=== PATIENT | female | born 1960 | race Caucasian/White ===

== ENCOUNTER 2022-06-06 13:43 | Outpatient (CLI) | payer BC, SELFPAY ==
--- NOTE | 2022-06-06 14:23 | ECG_ITS ---
Measurements Intervals [place] Rate: 65 P: 47 WA: 163 QRS: 6 QRSD: 90 T: -27 QT: 395 QTc: 413 Interpretive Statements SINUS RHYTHM NONSPECIFIC T-WAVE ABNORMALITY- ANTEROLAT/INF LEADS BASELINE ARTIFACT- I, II, AVR BORDERLINE ECG NO PREVIOUS ECG AVAILABLE FOR COMPARISON Electronically Signed On 06-06-2022 15:31:43 CDT by Jovanni Mae D.O.
[2022-06-06 15:57] LABS: Basophils Percent Auto 0.5 % (0.2-1.2); Eosinophils Absolute Auto 0.1 K/mm3 (0-0.3); Eosinophils Percent Auto 1.2 % (0-4.4); Hematocrit 40.2 % (37.0-47.0); Hemoglobin 13.9 g/dL (12.0-15.0); Immature Granulocyte Absolute 0.03 K/mm3 (0.00-0.031); Immature Granulocyte Percent A 0.4 % (0-0.5); Lymphocytes Absolute Auto 3.38 K/mm3 (0.9-3.2); Lymphocytes Percent Auto 39.5 % (18.3-44.2); Mean Corpuscular HGB Conc 34.6 g/dl (32-36); Mean Corpuscular Hemoglobin 33.2 pg (26-34); Mean Corpuscular Volume 95.9 fl (80-100); Mean Platelet Volume 9.3 fl (7.4-10.4); Monocytes Absolute Auto 0.5 K/mm3 (0.1-0.6); Monocytes Percent Auto 5.4 % (2.6-8.5); Neutrophils Absolute Auto 4.6 K/mm3 (1.3-6.7); Platelet Count Result 206 k/mm3 (150-375); Red Blood Count 4.19 M/mm3 (4.2-5.4); Red Cell Distribution Width 14.1 % (11.5-14.5); White Blood Count 8.6 K/mm3 (4.5-10.0)
[2022-06-06 16:08] LABS: Partial Thromboplastin Time 23.9 SECONDS (22.3-36.8); Prothrombin Time 12.4 Seconds (11.1-14.7)
[2022-06-06 16:24] LABS: Hemoglobin A1C 5.3 % (<5.7)
[2022-06-06 16:25] LABS: Urine Cotinine NEGATIVE
== END 2022-06-06 13:44 | disposition home or self-care (01) ==
LOC: ANHSURGERY 13:47
PROVIDERS: PCP Nurse Practitioner; Visit Provider Orthopaedic Surgery
DX: Z01.812 Encounter for preprocedural laboratory examination (principal); Z01.810 Encounter for preprocedural cardiovascular examination; M17.12 Unilateral primary osteoarthritis, left knee
CPT/HCPCS: 80307; 83036; 85025; 85610; 85730; 87081; 93005

== ENCOUNTER 2022-06-20 01:11 | Day surgery (SDC) | payer BC, SELFPAY ==
--- NOTE | 2022-06-06 13:50 | PC.NURSE ---
PRE-OP INSTRUCTIONS, PLEASE READ CAREFULLY Report to the Outpatient Waiting Room, entrance under the green pavilion located off [facility], at time _0830_ on date _06/20/22_. Planned Procedure Time: _1030_. PACK A SMALL OVERNIGHT BAG AND LEAVE IN THE CAR ALONG WITH YOUR WALKER Time changes happen often and if your time is changed the preop area will call you the afternoon before. - You and your visitor will be asked to self-screen and do not enter if you have any COVID symptoms. - Only one visitor is requested with a max of two and NO children visitors are allowed at this time. - The patient visitor may be requested to leave or wait in car when not with patient due to distancing restrictions. - A mask is optional within the hospital at this time. -VISITING HOURS 8AM-8PM Patients may have clear liquids (water, carbonated beverages, clear teas, apple juice) until 3 hours prior to surgery (0730 AM) with a maximum of 20 ounces. - No food from midnight until time of surgery Take the following medications with a SIP of water the morning of surgery: _METOPROLOL, VISTARIL, TRINTELLIX _ DO NOT STOP ANY OF YOUR OTHER PRESCRIPTION MEDICATIONS PRIOR TO SURGERY ?EXCEPT THE FOLLOWING Medications to discontinue per physician __NONE___, Date to take last dose Please no make-up, nail kittitian, hairspray, perfume, deodorant, or body powder the day of surgery. No jewelry (including any body piercings) or valuables the day of surgery, leave them at home. Please take a shower or bath the night before, or the morning of, surgery with an antibacterial soap. Wear comfortable, loose fitting clothing. - Jewelry must be removed prior to entering the operating room. Rings and piercings that are not removed may be cut off. - The hospital will not accept responsibility for valuables. - Please leave all valuables, including medications, at home the day of surgery. If you are going home after surgery, a licensed public transit trolley driver must drive you home. - NO public transportation without another adult if you receive anesthesia. - We recommend that an adult stay with you for 24 hours following discharge. - We also recommend that you do not drive, make important decision, drink alcoholic beverages, or take any drugs that were not prescribed by your health care provider for at least 24 hours after your discharge time. Follow any additional instructions given to you from your surgeon. TOTAL JOINT CLASS 06/13/22 @ [facility] ENTRANCE #2 - LOWER LEVEL If you or anyone in your household have experienced Covid symptoms in the past week, please notify your surgeon or the nurse liaison at the phone number below for possible testing. Instructions given to _PATIENT_and asked if any additional questions and then verbalized understanding. Patient advised to call surgeon office or pre surgery nurse liaison [phone] if any additional questions.
[2022-06-06 14:07] VITALS: BP 168/88; PULSE 72; RESP 20; TEMP 37.1; O2SAT 100; BMI 29.7
[2022-06-20] VITALS (15 sets, daily range): BP systolic 109–142; BP diastolic 71–88; PULSE 59–81; RESP 12–18; TEMP 35.9–37.5; O2SAT 90–100
--- NOTE | ~2022-06-20 | XR_ITS ---
EXAMINATION: [id number] DATE: 06/20/2022 13:46 INDICATION: Left knee arthroplasty. Postop. TECHNIQUE: 2 views of left knee were obtained. COMPARISON: None. FINDINGS: There is a total left knee arthroplasty without patellar resurfacing in near-anatomic align ment. No fracture. There is gas in the soft tissues, consistent with recent surgery. Anterior skin st aples are noted. IMPRESSION: 1. Total left knee arthroplasty in near-anatomic alignment. Reviewed, dictated and finalized at location A.
--- NOTE | 2022-06-20 07:12 | WPDHPUPDATE1 ---
History and Physical Update Update Date/Time: 06/20/22 07:12 History and Physical has been reviewed, including an updated exam of the patient. There are NO changes in the patient's condition. Risks, benefits, and alternatives have been discussed and questions answered. Patient agrees to proceed with procedure.
[2022-06-20] MEDS: ACETAMINOPHEN 500 MG TABLET 1000 MG PO (08:53)
[2022-06-20] MEDS: LACTATED RINGERS 1,000 ML 30 ML IV CONT ×2 (09:02→13:31)
--- NOTE | 2022-06-20 09:45 | WPDANESEPPF ---
Anes - Initial Pre Proc Eval Procedure: Operation Date: 06/20/22 10:30 Proposed Procedures p Left Total Knee Arthroplasty - Russ Sawant MD Date/Time: 06/20/22 09:45 Surgeon: Russ Sawant MD Pre Op Diagnosis: left knee djd Patient Data Age: 62 Gender: F Height: 1.57 m Weight: 74.6 kg Last Vital Signs Temp 36.1 C L 06/20/22 09:41 Pulse 59 L 06/20/22 09:41 Resp 16 06/20/22 09:41 BP 142/83 H 06/20/22 09:41 Pulse Ox 99 06/20/22 09:41 O2 Del Method Room Air 06/20/22 09:41 Allergies Allergy/AdvReac Type Severity Reaction Status Date / Time No Known Allergies Allergy Verified 06/20/22 08:47 Home Medications Medication Instructions Recorded Confirmed Type vortioxetine 10 mg tablet 10 mg PO DAILY #90 tabs 05/15/21 06/20/22 Rx (Trintellix) celecoxib 200 mg capsule (Celebrex) 200 mg PO BID #60 caps 03/15/22 06/20/22 Rx omeprazole 40 mg capsule,delayed 40 mg PO DAILY #90 caps 04/02/22 06/20/22 Rx release hydroxyzine pamoate 25 mg capsule 25 mg PO BID PRN anxiety #60 caps 05/31/22 06/20/22 Rx (Vistaril) metoprolol tartrate 50 mg tablet 50 mg PO BID #180 tabs 05/31/22 06/20/22 Rx triamterene 37.5 See Rx Instructions .Route 05/31/22 06/20/22 Rx mg-hydrochlorothiazide 25 mg tablet .COMPLEX #90 tabs chlorhexidine gluconate 4 % 1 applic topical ONCE #237 mL 06/11/22 06/20/22 Rx topical liquid (Hibiclens) Patient hx anesthesia problems: none Family hx anesthesia problems: none Results Review: All pre-operative results and documents have been reviewed as part of the pre-operative evaluation. [facility] Past Medical History Medical History Anxiety Depression GERD (gastroesophageal reflux disease) HTN (hypertension) Thoracic spine pain Surgical History Surgical History H/O right knee surgery (~2019) Right knee 2019 Family History Family History Father Cancer Mother Depression Anxiety Heart problem Thyroid disorder Cancer Sibling Cancer Social History Social History Smoking status: Former smoker Tobacco type: cigarettes and e-cigarettes/vaping Second hand tobacco smoke exposure: Yes (OCCASIONALLY) Smoking end date: 04/25/22 Additional smoking assessment comments: STATES 1 1/2PK/WEEK/40YS-QUIT SMOKING & VAPING 04/25/22-DENIES TOBBACO USE Alcohol intake: current Drinks per week: 5 Alcohol use details: occasionally Substance use: never Substance use type: does not use Lack of Transportation: No Lack of Food: Never True Current Housing: I Have Housing Concerned About Future Housing: No Difficulty Paying Gas/Electric Bills: No Difficulty Paying for Meds: No Currently Unemployed: No Education: Bachelor's Degree Living arrangements: alone Occupation/Education: occupation Gender identity (if verbalized by the patient): Female Spiritual care concerns: No Agree to blood products: Yes Anes - Eval Final PreProcedure Day of Procedure 06/20/22 09:45 Patient weight: obese Heart: regular rate and rhythm Lungs: clear to auscultation Airway: Mallampati scale class II Neurological: alert and oriented Last oral intake: >/= 8 hours ASA classification: III Emergent: no Anesthetic plan: proceed Anesthesia type and monitoring: general LMA and standard monitoring Results Review: All pre-operative results and documents have been reviewed as part of the pre-operative evaluation. Informed Consent: The patient's anesthetic plan and its attendant risks and benefits were discussed with the patient/family/POA. Questions were solicited and answers provided to the satisfaction of the patient/family/POA.
[2022-06-20] MEDS: TRANEXAMIC ACID 1,000MG/ISO100 1,000 MG/100 ML BAG 200 MG IVPB (10:12)
[2022-06-20] MEDS: ceFAZolin 2 GM/D5W 50 ML 2 GM/50 ML BAG IVPB ×2 (10:57→19:34)
[2022-06-20] MEDS: TRANEXAMIC ACID 1,000 MG/10 ML AMPUL 1000 MG IV PUSH (12:37)
--- NOTE | 2022-06-20 13:38 | WPDANESPNB ---
Anes - Peripheral Nerve Block Date/Time: 06/20/22 13:38 I have discussed with the patient/family/POA the placement of a peripheral nerve block for post-operative pain management, including associated risks, benefits, complications, and side effects. Alternative methods of post-operative analgesia were detailed. Questions were solicited and answers provided to the satisfaction of the patient/family/POA. Time-Out: A pre-procedural Time-Out was completed immediately before starting the procedure and confirmed: Patient Identification, Site, Procedure, Patient Position and the Availability of Requisite Equipment. Clinical Indications: Acute post-operative pain management requested by the operative surgeon. Nerve Block Insertion Note Anes-nerve block: adductor canal left Patient position: supine Skin prep: chlorhexidine Needle: 22 gauge, stimulating, insulated echogenic needle. Needle length: 80 mm Technique: ultrasound Injectate: bupivacaine 0.5% with epi 5 mcg/ml (30cc - no epi) Observations: tolerated well Complications: none Procedure start time:: 1335 Procedure end time:: 1338
[2022-06-20] MEDS: fentaNYL CITRATE INJ (*CRX) 100 MCG/2 ML VIAL 25 MCG IV PUSH ×7 (13:39→14:55)
--- NOTE | 2022-06-20 14:09 | W.PM.PROC2 ---
Procedure Note - Detailed Date of Procedure 06/20/22 Pre-op Diagnosis left knee djd Post-op Diagnosis Same Procedure Performed L TKA Surgeon Russ Sawant MD Anesthesia General Description of Procedure THE LEFT KNEE WAS PREPPED AND DRAPED IN THE STERILE FASHION. A MIDLINE SKIN INCISION WAS MADE. A MEDIAL PARAPATELLAR ARTHROTOMY WAS MADE. THE PATELLA WAS EVERTED. THERE WAS TRICOMPARTMENT DJD. THERE WAS MINIMAL PATELLA DJD. AN INTRAMEDULLARY JOSÉ WAS PLACED IN THE FEMUR. A DISTAL FEMORAL CUT WAS MADE IN 5 DEGREES OF VALGUS REMOVING APPROXIMATELY 9 MM OF BONE FROM THE DISTAL FEMUR. THE FEMUR WAS SIZED TO 62.5. A 62.5 FEMORAL CUTTING BLOCK WAS PLACED IN 3 DEGREES OF EXTERNAL ROTATION AND IN ALIGNMENT WITH MISTY'S LINE AND THE TRANSEPICONDYLAR AXIS. ANTERIOR POSTERIOR AND CHAMFER CUTS WERE MADE. THE CUTS WERE EXCELLENT. NEXT AN INTRAMEDULLARY CUTTING GUIDE WAS PLACED IN THE TIBIA. A TRANS TIBIAL CUT WAS MADE ALONG THE LONG AXIS OF THE TIBIA. APPROXIMATELY 10 MM OF BONE WAS REMOVED FROM THE HIGH SIDE OF THE TIBIA. THE TIBIA WAS THEN PLANED TO A SMOOTH SURFACE. POSTERIOR FEMORAL OSTEOPHYTES WERE REMOVED FROM THE FEMORAL CONDYLES. A 71 TIBIAL TRIAL WAS PLACED IN ALIGNMENT WITH THE 1/3 MEDIAL ASPECT OF THE TIBIAL TUBERCLE. THEN A 62.5 FEMORAL TRIAL COMPONENT WAS PLACED. BOTH HAD EXCELLENT FITS. EVENTUALLY A 1O MM CR POLYETHYLENE TRIAL COMPONENT WAS PLACED. THE KNEE WAS TAKEN THROUGH A RANGE OF MOTION. THE KNEE CAME OUT TO FULL EXTENSION. THERE WAS NO ABNORMAL TILT TO THE PATELLA. THERE WAS GOOD A/P AND VARUS/VALGUS STABILITY. THERE WAS NO EXCESSIVE ROLL BACK WITH FLEXION. THE TRIAL COMPONENTS WERE REMOVED. THEN A 62.5 FEMORAL COMPONENT AND 71 TIBIAL COMPONENT WITH A 10 CR POLYETHYLENE COMPONENT WERE CEMENTED INTO PLACE. ONCE THE CEMENT WAS HARD THE KNEE WAS TAKEN THROUGH A ROM AGAIN AND FOUND TO BE STABLE WITH NO PATELLA TILT NO EXCESSIVE ROLL BACK WITH FLEXION AND GOOD STABILITY WITH COMPLETE AND FULL EXTENSION. THE KNEE WAS IRRIGATED WITH STERILE BETADINE AND WATER FOR ABOUT 3 MINUTES. THE BLEEDERS WERE CAUTERIZED. THE ARTHROTOMY WAS REPAIRED WITH NUMBER 1 VICRYL. THE SUB CUTANEOUS LAYER WITH 2-0 VICRYL AND THE SKIN WITH FABIAN. THE WOUND WAS WASHED AND A STERILE DRESSING WAS APPLIED. PATIENT WAS EXTUBATED. Estimated Blood Loss -200.0 Pathology None sent Complications No immediate complications Condition Stable Disposition PACU
[2022-06-20] MEDS: diphenhydrAMINE HCl INJ 50 MG/ML VIAL 25 MG IV PUSH ×2 (14:38→22:37)
--- NOTE | 2022-06-20 15:59 | ADMGEN ---
This patient, Otilia Crandall, was admitted to [facility] Surg Room 319-01. Patient/family oriented to hospital policies and general routines including ID bracelet, bed and alarms, visiting hours, pain management, procedures, bathroom and other care routines, personal items, smoking policy, room service/diet, and visiting hours. Information on how to activate the Rapid Response Team has been discussed. Patient/Family are encouraged to report perceived risks to care and to ask questions if they do not understand what they are told or what they should do.
[2022-06-20] MEDS: SENNA/DOCUSATE SODIUM TABLET 2 TAB PO (17:19)
[2022-06-20] MEDS: CELECOXIB 200 MG CAPSULE PO (17:20)
[2022-06-20] MEDS: METOPROLOL TARTRATE 50 MG TAB PO (17:20)
--- NOTE | 2022-06-20 18:34 | PC.NURSE ---
Pt was admitted to the unit as a post op pt. Pt has reported drinking 4 alcohol containing beverages a night, per Douglas HERNANDEZ. Provider was notified. Pt will be monitored for signs of alcohol withdraw. Pt has no signs at this time. Will continue to monitor pt.
[2022-06-20] MEDS: hydrOXYzine pamoate 25 MG CAPSULE PO (19:34)
[2022-06-20] MEDS: oxyCODONE/ACETAMINOPHEN (*CRX) 5-325 MG TABLET 1 TABLET PO (20:46)
[2022-06-20] MEDS: ASPIRIN 325 MG ENTERIC TABLET PO (21:26)
--- NOTE | 2022-06-20 23:21 | PC.NURSE ---
During the shift for elroy patient complained of pain, so at 20:46 oxycodone/acetaminophen was administered to patient. At approximately, 22:35 patient then complained of itching throughout the body, specifying the most irritating being the back and arms. At 22:37 diphenhydramine was administered to patient to relieve the itching. At 22:52 followed up patient to assess the effectiveness of the diphenhydramine, and patient stated that all itching has been resolved. Charge nurse notified will continue to monitor.
[2022-06-21] MEDS: ACETAMINOPHEN 500 MG TABLET 1000 MG PO ×3 (01:06→16:25)
[2022-06-21] MEDS: ceFAZolin 2 GM/D5W 50 ML 2 GM/50 ML BAG IVPB ×2 (02:07→11:47)
[2022-06-21] MEDS: diazePAM (*CRX) 5 MG TABLET PO (04:42)
[2022-06-21 05:38] VITALS: BP 130/78; PULSE 62; RESP 16; TEMP 36.2; O2SAT 97
[2022-06-21 07:32] LABS: Basophils Percent Auto 0.2 % (0.2-1.2); Eosinophils Percent Auto 0.4 % (0-4.4); Hematocrit 33.8 % (37.0-47.0); Hemoglobin 11.5 g/dL (12.0-15.0); Immature Granulocyte Absolute 0.03 K/mm3 (0.00-0.031); Immature Granulocyte Percent A 0.3 % (0-0.5); Lymphocytes Absolute Auto 2.73 K/mm3 (0.9-3.2); Mean Corpuscular Hemoglobin 32.9 pg (26-34); Mean Corpuscular Volume 96.6 fl (80-100); Mean Platelet Volume 9.1 fl (7.4-10.4); Monocytes Absolute Auto 0.6 K/mm3 (0.1-0.6); Monocytes Percent Auto 6.8 % (2.6-8.5); Neutrophils Absolute Auto 5.7 K/mm3 (1.3-6.7); Neutrophils Percent Auto 62.3 % (45.5-73.1); Platelet Count Result 156 k/mm3 (150-375); Red Cell Distribution Width 13.6 % (11.5-14.5); White Blood Count 9.1 K/mm3 (4.5-10.0)
[2022-06-21 07:42] LABS: Anion Gap 4 mmol/L (8-16); Blood Urea Nitrogen 18 mg/dL (7-17); Calcium 9.3 mg/dL (8.4-10.2); Carbon Dioxide 27 mmol/L (22-30); Chloride 99 mmol/L (98-107); Estimated CRCL calculation 39 ml/min; Estimated Glomerular Filt Rate 42; Glucose 108 mg/dL (65-110); Potassium 3.7 mmol/L (3.4-5.0); Sodium 130 mmol/L (137-145)
[2022-06-21 08:43] VITALS: BP 151/84; PULSE 62; RESP 20; TEMP 36.2; O2SAT 100
--- NOTE | 2022-06-21 09:32 | P.PNAN_ITS ---
Anes - Prog Note Post-Op Date/Time: 06/21/22 09:32 Cardiovascular status: normal Respiratory status: normal Airway patency: baseline Mental status: baseline Post-Op hydration status: normal Vital Signs: Last Vital Signs Temp 36.2 C L 06/21/22 08:43 Pulse 62 06/21/22 08:43 Resp 20 06/21/22 08:43 BP 151/84 H 06/21/22 08:43 Pulse Ox 100 06/21/22 08:43 O2 Del Method Room Air 06/21/22 08:33 O2 Flow Rate 3 06/20/22 14:15 Pain Score (VAS): 2 I/O: Intake & Output 06/20/22 06/21/22 06/21/22 23:59 07:59 15:59 Intake Total 290 472 Balance 290 472 Laboratory Tests 06/21/22 07:13 06/21/22 07:13 06/20/22 06/21/22 06/21/22 09:04 07:13 07:13 WBC 9.1 RBC 3.50 L Hgb 11.5 L Hct 33.8 L MCV 96.6 MCH 32.9 MCHC 34.0 RDW 13.6 Plt Count 156 MPV 9.1 Immature Gran % (Auto) 0.3 Neut % (Auto) 62.3 Lymph % (Auto) 30.0 [place] % (Auto) 6.8 Eos % (Auto) 0.4 Baso % (Auto) 0.2 Lymph # (Auto) 2.73 [place] # (Auto) 0.6 Eos # (Auto) 0.0 Baso # (Auto) 0.0 Abs Immat Gran (auto) 0.03 Absolute Neuts (auto) 5.7 Absolute Nucleated RBC 0.0 Nucleated RBC % 0.0 Sodium 130 L Potassium 3.7 Chloride 99 Carbon Dioxide 27 Anion Gap 4 L BUN 18 H Creatinine 1.30 H Estim Creat Clear Calc 39 Estimated GFR 42 L Glucose 108 Calcium 9.3 Blood Type A Positive Antibody Screen Negative Post-procedural complaints: none Patient Feedback: Patient satisfied with anesthetic care.
[2022-06-21 09:33] VITALS: PULSE 66
[2022-06-21] MEDS: PANTOPRAZOLE 40 MG TABLET PO (09:33)
[2022-06-21] MEDS: CELECOXIB 200 MG CAPSULE PO ×2 (09:33→16:25)
[2022-06-21] MEDS: METOPROLOL TARTRATE 50 MG TAB PO ×2 (09:33→16:27)
[2022-06-21] MEDS: SENNA/DOCUSATE SODIUM TABLET 2 TAB PO (09:33)
[2022-06-21] MEDS: TRIAMTERENE 37.5 MG/HCTZ 25 MG (MAXZIDE) TABLET 1 TAB PO (09:33)
[2022-06-21] MEDS: ASPIRIN 325 MG ENTERIC TABLET PO (09:34)
[2022-06-21 12:43] VITALS: BP 124/73; PULSE 64; RESP 20; TEMP 36.4; O2SAT 100
[2022-06-21 16:27] VITALS: PULSE 66
--- NOTE | 2022-06-21 16:36 | PC.NURSE ---
Pt is A&O4 female. Pt has been up working with therapy today. Pt has ambulated in the hallway and in room. Pt reports minimal pain in left knee that at its highest was a 4/10. Pt has participated and contributed in plan of care today. Pt anticipating to discharge home with sister this evening. Will continue to monitor pt until discharge.
[2022-06-21 16:43] VITALS: BP 122/80; PULSE 59; RESP 20; TEMP 36.4; O2SAT 100
--- NOTE | 2022-06-21 18:00 | WPDPN ---
Progress Note: A&P Assessment and Plan (1) Left knee DJD: Code(s): M17.12 - Unilateral primary osteoarthritis, left knee Status: Acute Assessment and Plan: POD 1 DOING WELL WITH GOOD PROGRESS. OK TO DC HOME F/U IN 3 WEEKS. Subjective Date/time seen: 06/21/22 18:00 POD 1 DOING WELL. GOOD PROGRESS WITH PT. NO CALF PAIN Exam Extrem: Other: VSS AFEBRILE DRESSING DRY NV INTACT NEG HOMANS SIGN CALF SOFT NON TENDER Objective Data Vital Signs Vital Signs: Vital Signs - 24 hr 06/20/22 20:43 06/21/22 05:38 06/21/22 07:28 Temperature 36.4 C 36.2 C L Pulse Rate 63 62 Respiratory Rate 16 16 Blood Pressure 140/83 130/78 Pulse Oximetry 100 97 Oxygen Delivery Room Air 06/21/22 08:33 06/21/22 08:43 06/21/22 09:33 Temperature 36.2 C L Pulse Rate 62 66 Respiratory Rate 20 Blood Pressure 151/84 H Pulse Oximetry 100 Oxygen Delivery Room Air 06/21/22 12:43 06/21/22 16:27 06/21/22 16:43 Temperature 36.4 C 36.4 C L Pulse Rate 64 66 59 L Respiratory Rate 20 20 Blood Pressure 124/73 122/80 Pulse Oximetry 100 100 Oxygen Delivery Intake/Output Intake/Output: Intake & Output 06/18/22 06/19/22 06/20/22 06/21/22 23:59 23:59 23:59 23:59 Intake Total 1290 1234 Balance 1290 1234 Meds/Results Medications: Active Medications Generic Name Dose Route Start Last Admin Trade Name Freq PRN Reason Stop Dose Admin Acetaminophen 1,000 mg 06/20/22 14:58 06/21/22 16:25 Acetaminophen 500 Mg Tablet PO 1,000 mg Q6H PRN Administration Pain Rated 1-3 Aspirin 325 mg 06/20/22 21:00 06/21/22 09:34 Aspirin 325 Mg Enteric Tablet PO 325 mg Q12HR VALERI Administration Celecoxib 200 mg 06/20/22 17:00 06/21/22 16:25 Celecoxib 200 Mg Capsule PO 200 mg BID VALERI Administration Diazepam 5 mg 06/20/22 14:58 06/21/22 04:42 Diazepam (*Crx) 5 Mg Tablet PO 5 mg Q8H PRN Administration Spasms Diphenhydramine HCl 25 mg 06/20/22 14:58 06/20/22 22:37 Diphenhydramine Hcl Inj 50 Mg/Ml Vial IV PUSH 25 mg Q6H PRN Administration Itching Hydroxyzine Pamoate 25 mg 06/20/22 14:58 06/20/22 19:34 Hydroxyzine Pamoate 25 Mg Capsule PO 25 mg BID PRN Administration anxiety Metoprolol Tartrate 50 mg 06/20/22 17:00 06/21/22 16:27 Metoprolol Tartrate 50 Mg Tab PO 50 mg BID VALERI Administration Miscellaneous Information 1 each 06/20/22 00:01 Trintellix Is Nonform; Can Pt Use From Home? XX 07/20/22 00:00 CLARIFY VALERI Naloxone HCl 0.1 mg 06/20/22 14:58 Naloxone Hcl 0.4 Mg/Ml Vial IV PUSH Q2M PRN Opiate Reversal Non-Formulary Medication 10 mg 06/21/22 09:00 Vortioxetine [Trintellix] PO 07/21/22 08:59 DAILY VALERI Ondansetron HCl 4 mg 06/20/22 14:58 Ondansetron Inj 4 Mg/2 Ml Vial IV PUSH Q4H PRN Nausea And Vomiting Oxycodone/Acetaminophen 1 tablet 06/20/22 14:58 06/20/22 20:46 Oxycodone/Acetaminophen (*Crx) 5-325 Mg Tablet PO 1 tablet Q4H PRN Administration Pain Rated 4-6 Oxycodone/Acetaminophen 2 tablet 06/20/22 14:58 Oxycodone/Acetaminophen (*Crx) 5-325 Mg Tablet PO Q6H PRN Pain Rated 7-10 Pantoprazole Sodium 40 mg 06/21/22 09:00 06/21/22 16:26 Pantoprazole 40 Mg Tablet PO Not Given BID VALERI Polyethylene Glycol 17 gm 06/21/22 09:00 06/21/22 09:26 Polyethylene Glycol 3350 17 Gm Powd.Pack PO Not Given QAM VALERI Senna/Docusate Sodium 2 tab 06/20/22 17:00 06/21/22 16:26 Senna/Docusate Sodium Tablet PO Not Given BID VALERI Triamterene/Hydrochlorothiazide 1 tab 06/21/22 09:00 06/21/22 09:33 Triamterene 37.5 Mg/Hctz 25 Mg (Maxzide) Tablet PO 1 tab QAM VALERI Administration Radiology Results: ITS Impressions Knee X-Ray 06/20/22 13:47 IMPRESSION: 1. Total left knee arthroplasty in near-anatomic alignment. Labs Labs: Laboratory Results - last 24 hr 06/21/22 06/21/22 07:13 07
--- NOTE | 2022-06-21 18:02 | PM.DS ---
DS: Admitting Diagnosis Discharge Date 06/21/22 Admitting Diagnosis LEFT KNEE DJD DS: Discharge Diagnosis Discharge Diagnosis (1) Left knee DJD: Code(s): M17.12 - Unilateral primary osteoarthritis, left knee Status: Acute DS: Summary Hospital Course Reason for hospitalization: LEFT TKA Hospital Course: PATIENT WAS ADMITTED S/P TOTAL KNEE ARTHROPLASTY FOR POSTOPERATIVE MEDICAL MANAGEMENT, PAIN CONTROL AND MOBILIZATION WITH PHYSICAL AND OCCUPATIONAL THERAPY. THE PATIENT PROGRESSED WELL WITH PT/OT. LABS AND VITALS REMAINED STABLE AND PAIN WELL CONTROLLED. THE PATIENT HAS BEEN CLEARED TO BE DISCHARGED HOME. FOLLOW UP APPOINTMENT SCHEDULED. DISCHARGE INSTRUCTIONS DISCUSSED AT LENGTH WITH THE PATIENT. MEDICATIONS REVIEWED. Status at Discharge Cognitive/behavioral status at discharge: STABLE Functional status at discharge: uses cane/walker Time Spent with Patient Time attestation: Total time spent providing and/or coordinating discharge services: DS: Data Data Completed and Pending Labs on day of discharge: Labs from last 24 hours 06/21/22 06/21/22 07:13 07:13 WBC 9.1 RBC 3.50 L Hgb 11.5 L Hct 33.8 L MCV 96.6 MCH 32.9 MCHC 34.0 RDW 13.6 Plt Count 156 MPV 9.1 Immature Gran % (Auto) 0.3 Neut % (Auto) 62.3 Lymph % (Auto) 30.0 [place] % (Auto) 6.8 Eos % (Auto) 0.4 Baso % (Auto) 0.2 Lymph # (Auto) 2.73 [place] # (Auto) 0.6 Eos # (Auto) 0.0 Baso # (Auto) 0.0 Abs Immat Gran (auto) 0.03 Absolute Neuts (auto) 5.7 Absolute Nucleated RBC 0.0 Nucleated RBC % 0.0 Sodium 130 L Potassium 3.7 Chloride 99 Carbon Dioxide 27 Anion Gap 4 L BUN 18 H Creatinine 1.30 H Estim Creat Clear Calc 39 Estimated GFR 42 L Glucose 108 Calcium 9.3 Procedures/Treatments: LEFT TKA Discharge Plan Discharge Patient Disposition: Home, Self-Care Discharge Instructions: Per Care Coordination Patient is arranged to have [facility] for RN, PT, OT [phone] ANGELINA SAWANT M.D. [facility] [address] [address] [address] [place] [address] POST OPERATIVE DISCHARGE INSTRUCTIONS FOLLOWING TOTAL KNEE REPLACEMENT SURGERY ? Your dressing will be changed prior to your discharge. You will be sent home with one additional dressing to be changed on post op day 7 by the home health RN. Your rebecca will be removed on the 14th day after surgery and steri-strips will be placed. Please practice good hand hygiene and do not touch your incision in order to prevent infection. ? You may shower with your dressing but do not submerge in a bath tub. ? Do not drive or operate machinery until you are released by Dr. Sawant. ? Do not walk without a walker for any reason until you are released by Dr. Sawant. ? Continue to use your ice machine. Please use a towel or pillow case to protect your skin before applying your ice machine. ? Do NOT place a pillow under your knee. You may use a pillow from the calf down if needed. This will prevent a flexion contracture postoperatively. ? You may begin use of your CPM machine at home if you have been given one pre-operatively. DO NOT USE WHILE YOU ARE SLEEPING. ? Your first post op appointment was sent to you via mail preoperatively. If you have any questions or are unable to make your appointment, please contact our office for scheduling questions. ? Your medications have been sent to your pharmacy. You have been sent home with pain medication. We have also sent you with a stool softener as narcotics can cause constipation. Please keep this in mind during your postoperative recovery. If you are not experiencing regular bowel movements, please contact our office for further instruction. ? Please contact our office with any questions/concerns regarding your knee at [phone]. TAKE 2 ASPIRIN (325 MG) EVERY DAY STARTING TOMORROW FOR 3 WEEKS TO PREVENT BLOOD CLOTS
== END 2022-06-21 19:10 | disposition home or self-care (01) ==
LOC: ANHSURGERY 08:20 → ANH3MEDSUR 15:04
PROVIDERS: PCP Nurse Practitioner; Visit Provider Orthopaedic Surgery
PROC: (CPT 27447; principal; 2022-06-20 10:30)
DX: M17.12 Unilateral primary osteoarthritis, left knee (principal); G89.18 Other acute postprocedural pain; I10 Essential (primary) hypertension; K21.9 Gastro-esophageal reflux disease without esophagitis; F41.9 Anxiety disorder, unspecified; F32.A Depression, unspecified; Z87.891 Personal history of nicotine dependence; E66.9 Obesity, unspecified; Z68.30 Body mass index [BMI] 30.0-30.9, adult
CPT/HCPCS: 27447; 64447; 36415; 73560; 80048; 85025; 86850; 86900; 86901; 97110; 97116; 97161; 97165; 97535; A9270; C1713; C1776; J0171; J0690; J1100; J1165; J1200; J1885; J2250; J2270; J2405; J2704; J2795; J3010; J7120

== ENCOUNTER 2022-09-20 14:30 | Outpatient (RCR) | payer BC, SELFPAY ==
--- NOTE | 2022-07-19 16:09 | PTOPEVAL1 ---
Assessment and note entered by Sofy Armendariz DPT Evaluation Information Assessment Status Evaluation Subjective Information Pt had L TKA 4 weeks ago. Had home health until last week. Reports decreased endurance to stand on her leg and feels a lot of tightness in her lower leg. Highest pain 5/10 and lowest 1/10. Was using a walker until recently. Was given a cane but has not been using it. 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 Has stairs at home and is not able to use reciprocal motion yet. Returns to [place] in 3 months. Patient goal: Go back to work. Reported Pain Level Pain Score 0: Self Report Assessment PT Clinical Summary The patient is presenting to therapy s/p L TKA on 06/20/22. She presents with decreased range of motion, strength, and balance/gait impairments which are contributing to her pain and difficulty returning to all activities including work. She will benefit from therapy to address these impairment and safely return to full function. Plan of Care Interventions Electrical Stimulation,Hot Pack/Cold Pack,Manual Therapy,Neuro Re-education,Patient/Caregiver Education,Therapeutic Activities,Therapeutic Exercise,Self-Care/Home Management PT Services Indicated Yes Treatment Frequency and 2 times a week for 4 weeks Duration These treatments will address the objective and functional deficits as defined above. The patient will be advanced safely and appropriately in order for the patient to progress towards his/her prior level of function. Additional exercises will be introduced and as well as a comprehensive home exercise program upon discharge, if needed, ?to ensure carryover of functional gains achieved in the clinic. This treatment plan has been reviewed and agreement upon by the patient.
--- NOTE | 2022-08-09 11:18 | PCPTNOTE ---
Pt arrived to therapy with band-aid over distal end of scar due to scab cracking and falling off. Pt called MD and is going to see MD on 08/10/22. After looking at open wound, discharge is discolored and opening is about a dime sized hole with yellowish tissue exposed. Advised Pt we are canceling today's appointment until she sees MD tomorrow. Informed Pt if there is no infection or if Pt starts antibiotic we will resume therapy with MD's approval. Informed Physical Therapist.
--- NOTE | 2022-08-16 14:10 | PTOPPROG ---
Assessment and note entered by Sofy Armendariz DPT Evaluation Information Assessment Status Progress Subjective Information Highest pain in last week 1-04/20. Pain seems to occur more often at night. Reports no issues navigating her house right now. Returns to work 4 hours at a time on Saturday. Does report her basement stairs are steep and goes down them 1 at a time, can alternate to go up. Has been able to return to driving, grocery shopping, etc. Assessment PT Clinical Summary The patient has made excellent progress in therapy and reports minimal pain or functional limitation in the last week. She returns to work Saturday for 4 hour shifts. She demonstrates improved strength, full ROM to 129 degrees of flexion, improved gait speed and 5 time sit to stand. Due to her excellent progress, plan to continue therapy 1 time a week to ensure smooth transition to work activities and continue addressing quad weakness. Plan of Care Interventions Electrical Stimulation,Gait Training,Hot Pack/Cold Pack,Manual Therapy,Neuro Re-education,Patient/ Caregiver Education,Therapeutic Activities, Therapeutic Exercise,Self-Care/Home Management PT Services Indicated Yes Treatment Frequency and 1 time a week for 3 weeks Duration These treatments will address the objective and functional deficits as defined above. The patient will be advanced safely and appropriately in order for the patient to progress towards his/her prior level of function. Additional exercises will be introduced and as well as a comprehensive home exercise program upon discharge, if needed, ?to ensure carryover of functional gains achieved in the clinic. This treatment plan has been reviewed and agreement upon by the patient.
--- NOTE | 2022-09-20 14:55 | PTOPDC ---
Assessment and note entered by Sofy Armendariz DPT Evaluation Information Assessment Status Discharge Subjective Information Pt reports highest pain 4/10 and lowest 0/10. Has had some mornings where it feels really good, but is more painful today after working a 5 hour shift . Has worked a few 8 hour shifts so far and has a supportive boss who lets her sit if needed. Still some difficulty navigating stairs to her basement because they are steep. Otherwise no difficulty with ADL's. Returns to MD in early October. Reported Pain Level Pain Score 4: Self Report Assessment PT Clinical Summary The patient has made good progress overall in therapy. She demonstrates further improvements in quad strength and has been able to return to work for 4-8 hour shifts. Due to her progress and independence with ADL's, plan for discharge at this time. She has been educated to continue HEP and to follow up with MD and/or PT as needed. Plan of Care PT Services Indicated No
== END 2022-09-21 11:25 | disposition home or self-care (01) ==
LOC: ANHPT 14:30
PROVIDERS: PCP Nurse Practitioner; Visit Provider Orthopaedic Surgery
DX: Z47.1 Aftercare following joint replacement surgery (principal); Z96.652 Presence of left artificial knee joint
CPT/HCPCS: 97014; 97110; 97112; 97161; 97530; G0283

== ENCOUNTER 2022-09-27 07:54 | Outpatient (CLI) | payer BC, SELFPAY | END 2022-09-27 07:55 | disposition home or self-care (01) | LOC: ANHOUTPT 07:55 | PROVIDERS: PCP Family Medicine; Visit Provider Internal Medicine Nephrology | DX: E87.1 Hypo-osmolality and hyponatremia (principal) | CPT/HCPCS: 36415; 82533; J0834 ==

== ENCOUNTER 2023-01-30 15:07 | Outpatient (CLI) | payer BC, SELFPAY ==
--- NOTE | ~2023-01-30 | MM_ITS ---
EXAMINATION: MM screening seferino BI w diego HISTORY: Screening mammogram TECHNIQUE: Craniocaudal and mediolateral oblique 3-D tomosynthesis images were obtained and synthetic 2-D images were generated. CAD analysis was submitted and interpreted. COMPARISON: No prior mammogram is available for comparison at this institution. BREAST PARENCHYMAL COMPOSITION: There are scattered areas of fibroglandular density. FINDINGS: There bilateral small nodular densities. Bilateral diagnostic mammography is recommended, w ith ultrasound if required. IMPRESSION: 1. Bilateral nodular mammographic densities 2. Bilateral diagnostic mammography is recommended, with ultrasound if required BI-RADS Category 0: Incomplete: Needs additional imaging evaluation. Reviewed, dictated and finalized at location A. URGENT CARE
== END 2023-01-30 15:08 ==
LOC: MICIMG 15:07
PROVIDERS: PCP Nurse Practitioner Family; Visit Provider Nurse Practitioner Family
DX: Z12.31 Encounter for screening mammogram for malignant neoplasm of breast (principal); R92.8 Other abnormal and inconclusive findings on diagnostic imaging of breast
CPT/HCPCS: 77063; 77067

== ENCOUNTER 2023-02-26 14:19 | Outpatient (CLI) | payer BC, SELFPAY ==
--- NOTE | ~2023-02-26 | MMUS_ITS ---
EXAMINATION: MM diagnostic seferino BI w diego, US breast LT limited HISTORY: Bilateral mammographic nodular densities reported on 01/30/2023 screening mammogram TECHNIQUE: Additional 3-D tomosynthesis images of both breasts were performed and synthetic 2-D image s were generated. CAD analysis was submitted and interpreted. High resolution upper inner quadrant le ft breast ultrasound was performed. COMPARISON: 01/30/2023 bilateral screening mammogram FINDINGS: MAMMOGRAPHIC FINDINGS: There is an approximately 2.5 x 7.5 mm opacity in the upper inner quadrant of the left breast at mid depth, with suggestion of a fatty hilum, possibly an intramammary lymph node. No suspicious mass, architectural distortion, malignant calcification, skin thickening or retraction of either breast is noted otherwise. ULTRASOUND: No sonographic correlate is evident for the 3.5 x 7.5 mm left upper inner quadrant mammographic opaci ty . There is an approximately 2.8 x 3.5 mm circumscribed sonolucency at 12:00 1 cm from nipple, without i nternal vascularity or posterior shadowing, likely a small cyst. IMPRESSION: 1. Probable benign intramammary lymph node, upper inner quadrant of left breast 2. Six-month diagnostic left mammogram follow-up is recommended, with ultrasound if required BI-RADS category 3, probably benign findings. Reviewed, dictated and finalized at location A. MBLING FABRICATOR IMPRESSION: 1. Probable benign intramammary lymph node, upper inner quadrant of left breast 2. Six-month diagnostic left mammogram follow-up is recommended, with ultrasoun d if required BI-RADS category 3, probably benign findings.
== END 2023-02-26 14:20 ==
LOC: MICIMG 14:20
PROVIDERS: PCP Family Medicine; Visit Provider Family Medicine
DX: R92.8 Other abnormal and inconclusive findings on diagnostic imaging of breast (principal)
CPT/HCPCS: 76642; 77062; 77066; G0279

== ENCOUNTER 2023-03-21 14:21 | Outpatient (CLI) | payer BC, SELFPAY ==
--- NOTE | ~2023-03-21 | US_ITS ---
EXAMINATION: US renal BI DATE: 03/21/2023 14:35 INDICATION: Stage IIIB chronic kidney disease TECHNIQUE: Multiple ultrasound grayscale images of the kidneys were obtained. COMPARISON: None. FINDINGS: The right kidney measures 8.2 x 5.4 x 5.8 cm. The left kidney measures 7.9 x 5.1 x 5.7 cm. The kidney s demonstrate normal echogenicity. There is no hydronephrosis in either kidney. No stones identified . The bladder is normal. IMPRESSION: 1. Normal kidneys without hydronephrosis. Reviewed, dictated and finalized at location A. RAL APPELLATE LAW CLERK
== END 2023-03-21 14:22 ==
PROVIDERS: PCP Internal Medicine Nephrology; Visit Provider Internal Medicine Nephrology
DX: N18.32 Chronic kidney disease, stage 3b (principal)
CPT/HCPCS: 76775

== ENCOUNTER 2023-05-27 09:36 | Outpatient (CLI) | payer BC, SELFPAY ==
--- NOTE | 2023-05-27 10:38 | ECG_ITS ---
Measurements Intervals [place] Rate: 60 P: 23 AR: 155 QRS: 4 QRSD: 93 T: 3 QT: 414 QTc: 415 Interpretive Statements SINUS RHYTHM DELAYED PRECORDIAL R/S TRANSITION BORDERLINE T WAVE ABNORMALITY- INFERIOR LEADS BASELINE ARTIFACT- I, II, III, AVR, AVF BORDERLINE ECG COMPARED TO ECG 06/06/2022 15:44:26 NO SIGNIFICANT CHANGES Electronically Signed On 05-27-2023 13:03:59 CDT by Jovanni Mae D.O.
[2023-05-27 11:16] LABS: Basophils Percent Auto 0.4 % (0.2-1.2); Eosinophils Absolute Auto 0.1 K/mm3 (0-0.3); Eosinophils Percent Auto 0.9 % (0-4.4); Hematocrit 42.5 % (37.0-47.0); Hemoglobin 14.8 g/dL (12.0-15.0); Immature Granulocyte Absolute 0.06 K/mm3 (0.00-0.031); Immature Granulocyte Percent A 0.7 % (0-0.5); Lymphocytes Absolute Auto 3.27 K/mm3 (0.9-3.2); Lymphocytes Percent Auto 36.3 % (18.3-44.2); Mean Corpuscular HGB Conc 34.8 g/dl (32-36); Mean Corpuscular Hemoglobin 32.5 pg (26-34); Mean Corpuscular Volume 93.2 fl (80-100); Mean Platelet Volume 8.8 fl (7.4-10.4); Monocytes Absolute Auto 0.6 K/mm3 (0.1-0.6); Monocytes Percent Auto 6.9 % (2.6-8.5); Neutrophils Percent Auto 54.8 % (45.5-73.1); Platelet Count Result 246 k/mm3 (150-375); Red Blood Count 4.56 M/mm3 (4.2-5.4); Red Cell Distribution Width 12.9 % (11.5-14.5)
[2023-05-27 11:28] LABS: INR 0.9; Prothrombin Time 12.1 Seconds (11.1-14.7)
[2023-05-27 11:29] LABS: Urine Cotinine NEGATIVE
[2023-05-27 11:29] LABS: Partial Thromboplastin Time 22.5 Seconds (22.3-36.8)
[2023-05-27 11:36] LABS: Albumin Level 4.3 g/dL (3.5-5.1); Anion Gap 4 mmol/L (8-16); Blood Urea Nitrogen 19 mg/dL (7-17); Calcium 10.3 mg/dL (8.4-10.2); Carbon Dioxide 32 mmol/L (22-30); Chloride 97 mmol/L (98-107); Estimated Glomerular Filt Rate 46; Glucose 109 mg/dL (65-110); Potassium 3.8 mmol/L (3.4-5.0); Sodium 133 mmol/L (137-145)
[2023-05-27 11:39] LABS: Appearance Urine Clear (Clear); Bacteria Urine None Seen /hpf; Bilirubin Urine Negative (Negative); Blood Urine Negative (Negative); Color Urine Yellow (Yellow); Glucose Urine UA Negative (Negative); Ketones Urine Negative (Negative); Leukocyte Esterase Ur Trace LEU/UL (Negative); Need Manual Microscopic Reviewed; Nitrate Urine Negative (Negative); Non Pathogenic Casts 0-2; Protein Urine Negative (Negative); RBC Urine 0-2 /hpf (0-2); Specific Grav Ur 1.015 (1.001-1.035); Spermatozoa Urine Present; Squamous Epithelial Cell Urine None Seen /hpf (Few); WBC Urine 0-5 /hpf (0-3)
[2023-05-27 11:41] LABS: Add Urine Microscopic? YES
[2023-05-27 11:41] LABS: Hemoglobin A1C 5.9 % (<5.7)
[2023-05-27 12:32] LABS: MRSA (PCR) NOT DETECTED (NOT DETECTE)
== END 2023-05-27 09:37 | disposition home or self-care (01) ==
LOC: ANHSURGERY 09:40
PROVIDERS: PCP Nurse Practitioner Family; Visit Provider Orthopaedic Surgery
DX: Z01.818 Encounter for other preprocedural examination (principal); M17.11 Unilateral primary osteoarthritis, right knee; R93.1 Abnormal findings on diagnostic imaging of heart and coronary circulation
CPT/HCPCS: 36415; 80048; 80307; 82040; 83036; 85025; 85610; 85730; 87641; 93005

== ENCOUNTER 2023-06-11 00:51 | Day surgery (SDC) | payer BC, SELFPAY ==
--- NOTE | 2023-05-27 09:41 | PC.NURSE ---
Report to the Outpatient Waiting Room, entrance under the green pavilion located off [address], at time __8:30AM on date ___06/11/23____. Planned Procedure Time: __10:30AM . Time changes happen often and if your time is changed the preop area will call you the afternoon before. - You and your visitor will be asked to self-screen and do not enter if you have any COVID symptoms. - A mask is optional within the hospital at this time. Patients may have clear liquids (water, carbonated beverages, clear teas, apple juice) until 3 hours prior to surgery with a maximum of 20 ounces. - No food from midnight until time of surgery. Take the following medications with a SIP of water the morning of surgery: __METOPROLOL, VORTIOXETINE. HYDROXYZINE NEEDED FOR ANXIETY.__ DO NOT STOP ANY OF YOUR OTHER PRESCRIPTION MEDICATIONS PRIOR TO SURGERY ?EXCEPT THE FOLLOWING Medications to discontinue per physician ___HOLD NAPROXEN 2 WEEKS PRE-OP PER PRIMARY- LAST DOSE 05/27/23 HOLD ALL VITAMINS/SUPPLEMENTS 3 DAYS PRE-OP PER ANESTHESIA- LAST DOSE 06/07/23. Please no make-up, nail norwegian, hairspray, perfume, deodorant, or body powder the day of surgery. No jewelry (including any body piercings) or valuables the day of surgery, leave them at home. Please take a shower or bath the night before, or the morning of, surgery with an antibacterial soap. Wear comfortable, loose fitting clothing. - Jewelry must be removed prior to entering the operating room. Rings and piercings that are not removed may be cut off. - The hospital will not accept responsibility for valuables. - Please leave all valuables, including medications, at home the day of surgery. If you are going home after surgery, a licensed mobile lounge driver or operator must drive you home. - NO public transportation without another adult if you receive anesthesia. - We recommend that an adult stay with you for 24 hours following discharge. - We also recommend that you do not drive, make important decision, drink alcoholic beverages, or take any drugs that were not prescribed by your health care provider for at least 24 hours after your discharge time. Follow any additional instructions given to you from your surgeon. If you or anyone in your household have experienced Covid symptoms in the past week, please notify your surgeon or the nurse liaison at the phone number below for possible testing. Telephone instructions given to ____PATIENT and asked if any additional questions and then verbalized understanding. Patient advised to call surgeon office or pre surgery nurse liaison [phone] if any additional questions.
[2023-05-27 09:53] VITALS: BP 158/95; PULSE 63; RESP 16; TEMP 36.5; O2SAT 98; BMI 32.0
[2023-06-11] VITALS (18 sets, daily range): BP systolic 107–176; BP diastolic 67–98; PULSE 64–81; RESP 11–25; TEMP 36.2–36.6; O2SAT 93–100
--- NOTE | ~2023-06-11 | XR_ITS ---
EXAM: [id number]_CR DATE: 06/11/2023 12:43 HISTORY: RIGHT TOTAL KNEE, POST-OP . COMPARISON: None available. FINDINGS: Status post right knee arthroplasty. Midline skin rebecca. Gas and fluid over the joint. N o unexpected radiopaque foreign body. IMPRESSION: Expected postsurgical changes, with no radiographic evidence of procedure or hardware rel ated complication. Reviewed, dictated and finalized at location K. IMPRESSION: Expected postsurgical changes, with no radiographic evidence of pro cedure or hardware related complication.
--- NOTE | 2023-06-11 07:21 | WPDHPUPDATE1 ---
History and Physical Update Update Date/Time: 06/11/23 07:21 History and Physical has been reviewed, including an updated exam of the patient. There are NO changes in the patient's condition. Risks, benefits, and alternatives have been discussed and questions answered. Patient agrees to proceed with procedure.
--- NOTE | 2023-06-11 08:34 | WPDANESEPPF ---
Anes - Initial Pre Proc Eval Procedure: Operation Date: 06/11/23 10:30 Proposed Procedures p Right Total Knee Arthroplasty - Russ Sawant MD Date/Time: 06/11/23 08:34 Surgeon: Russ Sawant MD Pre Op Diagnosis: Rt Knee DJD Patient Data Age: 63 Gender: F Height: 1.57 m Weight: 79.5 kg Last Vital Signs Temp 97.7 F 05/27/23 09:53 Pulse 63 05/27/23 09:53 Resp 16 05/27/23 09:53 BP 158/95 H 05/27/23 09:53 Pulse Ox 98 05/27/23 09:53 O2 Del Method Room Air 05/27/23 09:53 Allergies Allergy/AdvReac Type Severity Reaction Status Date / Time fentanyl AdvReac Mild Itching Verified 06/11/23 09:27 oxycodone [From Percocet] AdvReac Itching Verified 06/11/23 09:27 Home Medications Medication Instructions Recorded Confirmed Type triamterene 37.5 See Rx Instructions .Route 09/10/22 05/27/23 Rx mg-hydrochlorothiazide 25 mg tablet .COMPLEX #90 tabs hydroxyzine pamoate 25 mg capsule 25 mg PO BID PRN anxiety #60 caps 04/18/23 05/27/23 Rx (Vistaril) cyclobenzaprine 10 mg tablet 10 mg PO TID PRN muscle spasm #90 04/25/23 05/27/23 Rx tabs ergocalciferol (vitamin D2) 1,250 1,250 mcg PO WEEKLY #12 caps 05/20/23 05/27/23 Rx mcg (50,000 unit) capsule naproxen 500 mg tablet 500 mg PO BID PRN Pain 05/27/23 05/27/23 History omeprazole 40 mg capsule,delayed 40 mg PO QAM 05/27/23 05/27/23 History release vortioxetine 10 mg tablet 10 mg PO QAM 05/27/23 05/27/23 History (Trintellix) chlorhexidine gluconate 4 % 1 applic topical ONCE #237 mL 05/28/23 Rx topical liquid (Hibiclens) metoprolol tartrate 50 mg tablet 50 mg PO BID #180 tabs 06/05/23 Rx Patient hx anesthesia problems: other (pt states slow to emerge in the past. ) Family hx anesthesia problems: none Results Review: All pre-operative results and documents have been reviewed as part of the pre-operative evaluation. [facility]LY [facility] Past Medical History Medical History Abnormal Pap smear of cervix Anxiety Depression GERD (gastroesophageal reflux disease) HTN (hypertension) Mass of left breast Thoracic spine pain Well woman exam with routine gynecological exam Surgical History Surgical History H/O right knee surgery (~2018) Right knee 2019 History of gynecological procedure (~1979) Cryo of cervix . per patient abnormal paps Family History Family History Father Cancer Mother Depression Anxiety Heart problem Thyroid disorder Cancer Sibling Cancer Social History Social History Smoking packs per day: 1 Smoking cigarettes per day: 20.0 Years smoked: 40 Smoking pack-years: 40.00 Smoking status: Former smoker Tobacco type: cigarettes Second hand tobacco smoke exposure: Yes (OCCASIONALLY) Smoking end date: 05/20/23 Additional smoking assessment comments: RECENTLY SMOKING 1 PACK/WEEK-STOPPED 05/20/23 FOR RTKA SURGERY Alcohol intake: current Drinks per week: 4 Alcohol use details: occasionally Substance use: never Substance use type: does not use Do You Feel Safe in your Home?: Yes Lack of Transportation: No Lack of Food: Never True Current Housing: I Have Housing Concerned About Future Housing: No Difficulty Paying Gas/Electric Bills: No Difficulty Paying for Meds: No Currently Unemployed: No Education: Bachelor's Degree Difficulty w/ Childcare or Family Care: No Living arrangements: other Additional living arrangements comments: SIGNIFICANT OTHER Occupation/Education: occupation Gender identity (if verbalized by the patient): Female Spiritual care concerns: No Agree to blood products: Yes Anes - Eval Final PreProcedure Day of Procedure 06/11/23 08:34 Patient weight: obese Heart: regular rate and rhythm Lungs: clear to ausculta
[2023-06-11] MEDS: TRANEXAMIC ACID 1,000MG/ISO100 1,000 MG/100 ML BAG 200 MG IVPB (08:50)
[2023-06-11] MEDS: LACTATED RINGERS 1,000 ML 30 ML IV CONT ×2 (08:50→12:24)
[2023-06-11] MEDS: ACETAMINOPHEN 500 MG TABLET 1000 MG PO (08:50)
[2023-06-11] MEDS: ceFAZolin 2 GM/D5W 50 ML 2 GM/50 ML BAG IVPB ×2 (10:23→21:15)
--- NOTE | 2023-06-11 10:45 | WPDANESPNB ---
Anes - Peripheral Nerve Block Date/Time: 06/11/23 10:45 I have discussed with the patient/family/POA the placement of a peripheral nerve block for post-operative pain management, including associated risks, benefits, complications, and side effects. Alternative methods of post-operative analgesia were detailed. Questions were solicited and answers provided to the satisfaction of the patient/family/POA. Time-Out: A pre-procedural Time-Out was completed immediately before starting the procedure and confirmed: Patient Identification, Site, Procedure, Patient Position and the Availability of Requisite Equipment. Clinical Indications: Acute post-operative pain management requested by the operative surgeon. Nerve Block Insertion Note Anes-nerve block: adductor canal Patient position: supine Skin prep: chlorhexidine Needle: 22 gauge, stimulating, insulated echogenic needle. Needle length: 80 mm Technique: ultrasound Technique comment: Midazolam 2 mg. Injectate: other (Bupiv 0.5% plain. ) Observations: tolerated well Complications: none Procedure start time:: 1011 Procedure end time:: 1017
[2023-06-11] MEDS: SODIUM CHLORIDE 0.9% IV 38.7 ML, ROPivacaine HCL 1% 200 MG, KETOROLAC INJ (*BKC) 15 MG,... INFILTRATE (11:20)
[2023-06-11] MEDS: TRANEXAMIC ACID 1,000 MG/10 ML AMPUL 1000 MG IV PUSH (11:33)
--- NOTE | 2023-06-11 12:18 | W.PM.PROC2 ---
Procedure Note - Detailed Date of Procedure 06/11/23 Pre-op Diagnosis Rt Knee DJD Post-op Diagnosis Same Procedure Performed R TKA Surgeon Russ Sawant MD Anesthesia General Description of Procedure THE RIGHT KNEE WAS PREPPED AND DRAPED IN THE STERILE FASHION. THERE WAS A 10 DEGREE FLEXION CONTRACTURE. A MIDLINE SKIN INCISION WAS MADE. A MEDIAL PARAPATELLAR ARTHROTOMY WAS MADE. THE PATELLA WAS EVERTED. THERE WAS TRICOMPARTMENT DJD. THERE WAS MINIMAL PATELLA DJD. AN INTRAMEDULLARY JOSÉ WAS PLACED IN THE FEMUR. A DISTAL FEMORAL CUT WAS MADE IN 5 DEGREES OF VALGUS REMOVING APPROXIMATELY 9 MM OF BONE FROM THE DISTAL FEMUR. THE FEMUR WAS SIZED TO 62.5. A 62.5 FEMORAL CUTTING BLOCK WAS PLACED IN 3 DEGREES OF EXTERNAL ROTATION AND IN ALIGNMENT WITH MISTY'S LINE AND THE TRANSEPICONDYLAR AXIS. ANTERIOR POSTERIOR AND CHAMFER CUTS WERE MADE. THE CUTS WERE EXCELLENT. NEXT AN INTRAMEDULLARY CUTTING GUIDE WAS PLACED IN THE TIBIA. A TRANS TIBIAL CUT WAS MADE ALONG THE LONG AXIS OF THE TIBIA. APPROXIMATELY 10 MM OF BONE WAS REMOVED FROM THE HIGH SIDE OF THE TIBIA. THE TIBIA WAS THEN PLANED TO A SMOOTH SURFACE. POSTERIOR FEMORAL OSTEOPHYTES WERE REMOVED FROM THE FEMORAL CONDYLES. A 71 TIBIAL TRIAL WAS PLACED IN ALIGNMENT WITH THE 1/3 MEDIAL ASPECT OF THE TIBIAL TUBERCLE. THEN A 62.5 FEMORAL TRIAL COMPONENT WAS PLACED. BOTH HAD EXCELLENT FITS. EVENTUALLY A 10 MM CR POLYETHYLENE TRIAL COMPONENT WAS PLACED. THE KNEE WAS TAKEN THROUGH A RANGE OF MOTION. THE KNEE CAME OUT TO FULL EXTENSION. THERE WAS NO ABNORMAL TILT TO THE PATELLA. THERE WAS GOOD A/P AND VARUS/VALGUS STABILITY. THERE WAS NO EXCESSIVE ROLL BACK WITH FLEXION. THE TRIAL COMPONENTS WERE REMOVED. THEN A 62.5 FEMORAL COMPONENT AND 71 TIBIAL COMPONENT WITH A 10 CR POLYETHYLENE COMPONENT WERE CEMENTED INTO PLACE. ONCE THE CEMENT WAS HARD THE KNEE WAS TAKEN THROUGH A ROM AGAIN AND FOUND TO BE STABLE WITH NO PATELLA TILT NO EXCESSIVE ROLL BACK WITH FLEXION AND GOOD STABILITY WITH COMPLETE AND FULL EXTENSION. THE KNEE WAS IRRIGATED WITH STERILE BETADINE AND WATER FOR ABOUT 3 MINUTES. THE BLEEDERS WERE CAUTERIZED. THE ARTHROTOMY WAS REPAIRED WITH NUMBER 1 VICRYL. THE SUB CUTANEOUS LAYER WITH 2-0 VICRYL AND THE SKIN WITH FABIAN. THE WOUND WAS WASHED AND A STERILE DRESSING WAS APPLIED. PATIENT WAS EXTUBATED. Estimated Blood Loss -150.0 Pathology None sent Complications No immediate complications Condition Stable Disposition PACU
[2023-06-11] MEDS: HYDROmorphone HCL INJ (*CRX) 1 MG/ML SYR 0.5 MG IV PUSH ×6 (12:32→13:11)
--- NOTE | 2023-06-11 13:30 | SUR.PHASEI ---
Patient meets PACU discharge criteria, unit bed unavailable at this time. Patient placed in extended recovery status.
[2023-06-11] MEDS: diphenhydrAMINE HCl INJ 50 MG/ML VIAL 12.5 MG IV PUSH (16:13)
[2023-06-11] MEDS: oxyCODONE/ACETAMINOPHEN (*CRX) 5-325 MG TABLET 1 TABLET PO (16:14)
[2023-06-11] MEDS: PANTOPRAZOLE 40 MG TABLET PO (17:26)
[2023-06-11] MEDS: SENNA/DOCUSATE SODIUM TABLET 2 TAB PO (17:26)
[2023-06-11] MEDS: METOPROLOL TARTRATE 50 MG TAB PO (17:26)
[2023-06-11] MEDS: KETOROLAC 15 MG/ML VIAL (*BKC) IV PUSH (17:26)
[2023-06-11] MEDS: CYCLOBENZAPRINE HCL 10 MG TABLET PO (17:26)
--- NOTE | 2023-06-11 17:43 | ADMGEN ---
This patient, Otilia Crandall, was admitted to [address] [place] [address] Room 332-01. Patient/family oriented to hospital policies and general routines including ID bracelet, bed and alarms, visiting hours, pain management, procedures, bathroom and other care routines, personal items, smoking policy, room service/diet, and visiting hours. Information on how to activate the Rapid Response Team has been discussed. Patient/Family are encouraged to report perceived risks to care and to ask questions if they do not understand what they are told or what they should do.
[2023-06-11] MEDS: oxyCODONE/ACETAMINOPHEN (*CRX) 5-325 MG TABLET 2 TABLET PO (21:13)
[2023-06-11] MEDS: hydrOXYzine pamoate 25 MG CAPSULE PO (21:14)
[2023-06-11] MEDS: diazePAM (*CRX) 5 MG TABLET PO (21:14)
[2023-06-11] MEDS: ASPIRIN 325 MG ENTERIC TABLET PO (21:14)
[2023-06-11] MEDS: diphenhydrAMINE HCl INJ 50 MG/ML VIAL 25 MG IV PUSH (21:14)
[2023-06-11] MEDS: SODIUM CHLORIDE 0.9% IV 1,000 ML 125 ML IV CONT (21:15)
[2023-06-12] VITALS: BP 114/65; PULSE 66; RESP 18; TEMP 35.7; O2SAT 93
[2023-06-12] MEDS: ceFAZolin 2 GM/D5W 50 ML 2 GM/50 ML BAG IVPB ×2 (03:13→12:26)
[2023-06-12] MEDS: KETOROLAC 15 MG/ML VIAL (*BKC) IV PUSH ×2 (03:13→12:26)
[2023-06-12] MEDS: diphenhydrAMINE HCl INJ 50 MG/ML VIAL 25 MG IV PUSH (03:14)
[2023-06-12] MEDS: CYCLOBENZAPRINE HCL 10 MG TABLET PO ×2 (03:14→14:21)
[2023-06-12] MEDS: oxyCODONE/ACETAMINOPHEN (*CRX) 5-325 MG TABLET 2 TABLET PO ×2 (03:14→14:19)
[2023-06-12 04:15] VITALS: BP 122/80; PULSE 67; RESP 18; TEMP 36.1; O2SAT 93
[2023-06-12 06:30] LABS: Basophils Percent Auto 0.2 % (0.2-1.2); Eosinophils Percent Auto 0.3 % (0-4.4); Hematocrit 34.2 % (37.0-47.0); Hemoglobin 11.6 g/dL (12.0-15.0); Immature Granulocyte Absolute 0.06 K/mm3 (0.00-0.031); Immature Granulocyte Percent A 0.6 % (0-0.5); Lymphocytes Absolute Auto 2.72 K/mm3 (0.9-3.2); Lymphocytes Percent Auto 25.1 % (18.3-44.2); Mean Corpuscular HGB Conc 33.9 g/dl (32-36); Mean Corpuscular Hemoglobin 32.4 pg (26-34); Mean Corpuscular Volume 95.5 fl (80-100); Mean Platelet Volume 9.4 fl (7.4-10.4); Monocytes Absolute Auto 0.9 K/mm3 (0.1-0.6); Monocytes Percent Auto 7.9 % (2.6-8.5); Neutrophils Absolute Auto 7.1 K/mm3 (1.3-6.7); Neutrophils Percent Auto 65.9 % (45.5-73.1); Platelet Count Result 184 k/mm3 (150-375); Red Blood Count 3.58 M/mm3 (4.2-5.4); Red Cell Distribution Width 12.4 % (11.5-14.5); White Blood Count 10.8 K/mm3 (4.5-10.0)
[2023-06-12 06:45] LABS: Anion Gap 2 mmol/L (4-12); Blood Urea Nitrogen 25 mg/dL (7-17); Calcium 8.9 mg/dL (8.4-10.2); Carbon Dioxide 28 mmol/L (22-30); Chloride 98 mmol/L (98-107); Estimated CRCL calculation 37 ml/min; Estimated Glomerular Filt Rate 38; Glucose 105 mg/dL (65-110); Potassium 3.4 mmol/L (3.4-5.0); Sodium 128 mmol/L (137-145)
[2023-06-12 08:00] VITALS: BP 113/58; PULSE 72; RESP 18; TEMP 37; O2SAT 100
[2023-06-12] MEDS: oxyCODONE/ACETAMINOPHEN (*CRX) 5-325 MG TABLET 1 TABLET PO (09:01)
[2023-06-12] MEDS: ASPIRIN 325 MG ENTERIC TABLET PO (09:02)
[2023-06-12] MEDS: SENNA/DOCUSATE SODIUM TABLET 2 TAB PO (09:02)
[2023-06-12] MEDS: PANTOPRAZOLE 40 MG TABLET PO (09:03)
[2023-06-12] MEDS: diazePAM (*CRX) 5 MG TABLET PO (09:03)
[2023-06-12 09:04] VITALS: PULSE 72
[2023-06-12] MEDS: METOPROLOL TARTRATE 50 MG TAB PO (09:04)
--- NOTE | 2023-06-12 10:00 | P.PNAN_ITS ---
Anes - Prog Note Post-Op Date/Time: 06/12/23 10:00 Cardiovascular status: normal Respiratory status: normal Airway patency: baseline Mental status: baseline Post-Op hydration status: normal Vital Signs: Last Vital Signs Temp 37.0 C 06/12/23 08:00 Pulse 72 06/12/23 09:04 Resp 18 06/12/23 08:00 BP 113/58 L 06/12/23 08:00 Pulse Ox 100 06/12/23 08:00 O2 Del Method Room Air 06/12/23 09:02 O2 Flow Rate 2 06/11/23 15:25 Pain Score (VAS): 04/20 I/O: Intake & Output 06/11/23 06/12/23 06/12/23 23:59 07:59 15:59 Intake Total 442 240 Balance 442 240 Laboratory Tests 06/12/23 05:35 06/12/23 05:35 06/11/23 06/12/23 08:50 05:35 WBC 10.8 H RBC 3.58 L Hgb 11.6 L D Hct 34.2 L MCV 95.5 MCH 32.4 MCHC 33.9 RDW 12.4 Plt Count 184 MPV 9.4 Immature Gran % (Auto) 0.6 H Neut % (Auto) 65.9 Lymph % (Auto) 25.1 [place] % (Auto) 7.9 Eos % (Auto) 0.3 Baso % (Auto) 0.2 Lymph # (Auto) 2.72 [place] # (Auto) 0.9 H Eos # (Auto) 0.0 Baso # (Auto) 0.0 Abs Immat Gran (auto) 0.06 H Absolute Neuts (auto) 7.1 H Absolute Nucleated RBC 0.000 Nucleated RBC % 0.0 Sodium 128 L Potassium 3.4 Chloride 98 Carbon Dioxide 28 Anion Gap 2 L BUN 25 H Creatinine 1.40 H Estim Creat Clear Calc 37 Estimated GFR 38 L Glucose 105 Calcium 8.9 Antibody Screen Negative Post-procedural complaints: none Patient Feedback: Patient satisfied with anesthetic care.
--- NOTE | 2023-06-12 11:11 | PM.DS ---
DS: Admitting Diagnosis Discharge Date 06/12/23 Admitting Diagnosis right knee djd DS: Discharge Diagnosis Discharge Diagnosis (1) Right knee DJD: Qualifiers: Osteoarthritis type: primary Qualified Code(s): M17.11 - Unilateral primary osteoarthritis, right knee Code(s): M17.11 - Unilateral primary osteoarthritis, right knee Status: Acute Plan pod 1 doing well. ok to dc home f/u in 3 weeks DS: Summary Hospital Course Reason for hospitalization: right tka Hospital Course: PATIENT WAS ADMITTED S/P TOTAL KNEE ARTHROPLASTY FOR POSTOPERATIVE MEDICAL MANAGEMENT, PAIN CONTROL AND MOBILIZATION WITH PHYSICAL AND OCCUPATIONAL THERAPY. THE PATIENT PROGRESSED WELL WITH PT/OT. LABS AND VITALS REMAINED STABLE AND PAIN WELL CONTROLLED. THE PATIENT HAS BEEN CLEARED TO BE DISCHARGED HOME. FOLLOW UP APPOINTMENT SCHEDULED. DISCHARGE INSTRUCTIONS DISCUSSED AT LENGTH WITH THE PATIENT. MEDICATIONS REVIEWED. Status at Discharge Cognitive/behavioral status at discharge: STABLE Time Spent with Patient Time attestation: Total time spent providing and/or coordinating discharge services: Exam Narrative: VSS AFEBRILE DRESSING DRY NV INTACT NEG HOMANS SIGN CALF SOFT NON TENDER THIGH SOFT NON TENDER DS: Data Data Completed and Pending Labs on day of discharge: Labs from last 24 hours 06/12/23 05:35 WBC 10.8 H RBC 3.58 L Hgb 11.6 L D Hct 34.2 L MCV 95.5 MCH 32.4 MCHC 33.9 RDW 12.4 Plt Count 184 MPV 9.4 Immature Gran % (Auto) 0.6 H Neut % (Auto) 65.9 Lymph % (Auto) 25.1 [place] % (Auto) 7.9 Eos % (Auto) 0.3 Baso % (Auto) 0.2 Lymph # (Auto) 2.72 [place] # (Auto) 0.9 H Eos # (Auto) 0.0 Baso # (Auto) 0.0 Abs Immat Gran (auto) 0.06 H Absolute Neuts (auto) 7.1 H Absolute Nucleated RBC 0.000 Nucleated RBC % 0.0 Sodium 128 L Potassium 3.4 Chloride 98 Carbon Dioxide 28 Anion Gap 2 L BUN 25 H Creatinine 1.40 H Estim Creat Clear Calc 37 Estimated GFR 38 L Glucose 105 Calcium 8.9 Procedures/Treatments: RIGHT TKA Discharge Plan Discharge Patient Disposition: Home Health Service Discharge Instructions: ANGELINA SAWANT M.D. [facility] [address] [place] [id number] POST OPERATIVE DISCHARGE INSTRUCTIONS FOLLOWING TOTAL KNEE REPLACEMENT SURGERY ? Your dressing will be changed prior to your discharge. You will be sent home with one additional dressing to be changed on post op day 7 by the home health RN. Your rebecca will be removed on the 14th day after surgery and steri-strips will be placed. Please practice good hand hygiene and do not touch your incision in order to prevent infection. ? You may shower with your dressing but do not submerge in a bath tub. ? Do not drive or operate machinery until you are released by Dr. Sawant. ? Do not walk without a walker for any reason until you are released by Dr. Sawant. ? Continue to use your ice machine. Please use a towel or pillow case to protect your skin before applying your ice machine. ? Do NOT place a pillow under your knee. You may use a pillow from the calf down if needed. This will prevent a flexion contracture postoperatively. ? You may begin use of your CPM machine at home if you have been given one pre-operatively. DO NOT USE WHILE YOU ARE SLEEPING. ? Your first post op appointment was sent to you via mail preoperatively. If you have any questions or are unable to make your appointment, please contact our office for scheduling questions. ? Your medications have been sent to your pharmacy. You have been sent home with pain medication. We have also sent you with a stool softener as narcotics can cause constipation. Please keep this in mind during your postoperative recovery. If you are not experiencing regular bowel movements, please contact our office for further instruction. ? Please contact our office with any questions/
[2023-06-12 12:00] VITALS: BP 121/84; PULSE 68; RESP 18; TEMP 37; O2SAT 100
[2023-06-12] MEDS: TRIAMTERENE 37.5 MG/HCTZ 25 MG (MAXZIDE) TABLET 1 TAB BY MOUTH (12:28)
== END 2023-06-12 14:45 | disposition home health service (06) ==
LOC: ANHSURGERY 08:20 → ANH3MEDSUR 16:36
PROVIDERS: PCP Nurse Practitioner Family; Visit Provider Orthopaedic Surgery
PROC: (CPT 27447; principal; 2023-06-11 10:30)
DX: M17.11 Unilateral primary osteoarthritis, right knee (principal); G89.18 Other acute postprocedural pain; I10 Essential (primary) hypertension; K21.9 Gastro-esophageal reflux disease without esophagitis; F41.9 Anxiety disorder, unspecified; F32.A Depression, unspecified; Z87.891 Personal history of nicotine dependence; E66.9 Obesity, unspecified; Z68.31 Body mass index [BMI] 31.0-31.9, adult
CPT/HCPCS: 27447; 64447; 36415; 73560; 80048; 85025; 86850; 86900; 86901; 97110; 97161; 97165; 97530; 97535; A9270; C1713; C1776; J0171; J0690; J1100; J1170; J1200; J1885; J2270; J2405; J2704; J2795; J7030; J7120

== ENCOUNTER 2023-07-09 15:31 | Outpatient (CLI) | payer BC, SELFPAY ==
--- NOTE | ~2023-07-09 | US_ITS ---
EXAMINATION:US venous doppler LE RT INDICATION:Right leg pain and swelling TECHNIQUE: Multiple grayscale, color flow and Doppler images of the right lower extremity deep venous systems were obtained and reviewed. COMPARISON:No prior studies for comparison. FINDINGS: The common femoral, superficial femoral and popliteal veins demonstrate normal respiratory variation, augmentation and compressibility. Color flow is also seen within the posterior tibial, pe roneal, greater saphenous and profunda veins. Small amount of nonspecific fluid present in the poplit eal fossa. IMPRESSION: 1: No lower extremity deep venous thrombosis. Reviewed, dictated and finalized at location B.
== END 2023-07-09 15:32 | disposition home or self-care (01) ==
PROVIDERS: PCP Nurse Practitioner Family; Visit Provider Orthopaedic Surgery
DX: M79.661 Pain in right lower leg (principal); Z96.651 Presence of right artificial knee joint
CPT/HCPCS: 93971

== ENCOUNTER 2023-08-08 13:00 | Outpatient (RCR) | payer BC, SELFPAY ==
--- NOTE | 2023-07-09 10:31 | OPREHPOC ---
Outpatient Therapy Plan of Care This is a Multidisciplinary Plan of Care that may contain components documented by all disciplines (PT, OT, and ST.) PT Problem 1 PT Problem #1 Knowledge Deficit PT Goal 1 Goal 1. Patient will perform independent HEP Target Visit 4 PT Problem 2 PT Problem #2 Pain PT Goal 1 Goal 1. Patient will report pain with work activities no higher than 2/10 Target Visit 10 PT Problem 3 PT Problem #3 Impaired Functional ADLs PT Goal 1 Goal 1. Patient able to navigate stairs reciprocally 2. Patient will be able to return to work as allowed by MD Target Visit 10 PT Problem 4 PT Problem #4 Impaired Range of Motion PT Goal 1 Goal 1. Improve right knee extension to 0 for gait 2. Improve right knee flexion to 120 for stairs Target Visit 10 PT Problem 5 PT Problem #5 Impaired Strength PT Goal 1 Goal 1. Right knee flexion and extension to 5/5 for ADL 's and lifting activities at work Target Visit 10
--- NOTE | 2023-07-09 10:31 | PTOPEVAL1 ---
Assessment and note entered by Sofy Armendariz DPT Evaluation Information Assessment Status Evaluation Subjective Information R TKA on 06/11/23, had home health home for awhile and then has been discharged. Highest pain in the last week 6-10 and lowest /10. Pt has 2 stairs getting in to the house and stairs to the backyard and basement. States she is not able to do reciprocal pattern yet. No assistive device. Is dressing and bathing independently. Doing some cooking and light cleaning but not all cleaning activities. Also requires breaks and states her endurance level is decreased. Pt works at [employer] and would like to return in a few weeks. Patient goal: increase endurance and bend my knee more, go back to work Returns to Dr. Sanchez in 3 months. Reported Pain Level Pain Score 2: Self Report Assessment PT Clinical Summary The patient is presenting to skilled therapy s/p R TKA on 06/11/23. She presents with decreased range of motion, strength, and pain, which are contributing to her gait and stair impairments and difficulty performing normal activities including work. She will highly benefit from therapy to address these impairments in order to reduce pain and return to full function. Plan of Care Interventions Electrical Stimulation,Gait Training,Hot Pack/Cold Pack,Manual Therapy,Neuro Re-education,Patient/ Caregiver Education,Therapeutic Activities, Therapeutic Exercise PT Services Indicated Yes Treatment Frequency and 2 times a week for 10 visits Duration These treatments will address the objective and functional deficits as defined above. The patient will be advanced safely and appropriately in order for the patient to progress towards his/her prior level of function. Additional exercises will be introduced and as well as a comprehensive home exercise program upon discharge, if needed, ?to ensure carryover of functional gains achieved in the clinic. This treatment plan has been reviewed and agreement upon by the patient.
--- NOTE | 2023-07-16 14:53 | PCPTNOTE ---
Pt arrived this date not feeling well.Se thought possible food poisoning 4 days ago. Pt's superior incision site of TKA presents red and angry. Pt states it has been this way the past few days. Pt advised to see Dr. Sawant immediately for assessment. AKS. PT notified and directed appropriate action. This visit was a no charge.
--- NOTE | 2023-08-08 13:57 | PTOPDC ---
Assessment and note entered by Norm Robb Evaluation Information Assessment Status Discharge Diagnosis right TKA Onset 06/11/23 Subjective Information Pt. reports that she returned to work a few days ago. She states that her pain is minimal. She reports that she will be leaving for vacation in a few days. She reports she has little to no complication with all IADL's. She states that she is ready for discharge at this time. Reported Pain Level Pain Score 0: Self Report Pain Score 0: Self Report Assessment PT Clinical Summary Pt. has met all goals established at the initial evaluation. She is encouraged to continue with her HEP and will be discharged from our care. Plan of Care PT Services Indicated No
== END 2023-08-08 14:34 | disposition home or self-care (01) ==
LOC: ANHPT 13:00
PROVIDERS: PCP Nurse Practitioner Family; Visit Provider Orthopaedic Surgery
DX: Z47.1 Aftercare following joint replacement surgery (principal); Z96.651 Presence of right artificial knee joint
CPT/HCPCS: 97110; 97116; 97140; 97161; 97530

== ENCOUNTER 2023-09-02 08:45 | Outpatient (CLI) | payer BC, SELFPAY ==
--- NOTE | ~2023-09-02 | MMUS_ITS ---
EXAMINATION: MM diagnostic seferino LT w diego, US breast LT limited HISTORY: Six-month follow-up of possible intramammary left breast lymph node TECHNIQUE: 3-D tomosynthesis images and spot compression 3-D tomosynthesis images of the left breast were performed and synthetic 2-D images were generated. CAD analysis was submitted and interpreted. H igh resolution limited left breast ultrasound was performed. COMPARISON: 02/26/2023 and 01/30/2023 FINDINGS: MAMMOGRAPHIC FINDINGS: There are scattered fibroglandular densities. Parenchymal pattern of the left breast is unchanged. St able focal asymmetry at the inner left breast, possibly an intramammary lymph node. No new mass lesio n or distortion seen. No suspicious microcalcifications seen. ULTRASOUND: At the 9:00 position left breast, 1 cm from the nipple, there is a 5 mm superficial hypoechoic struct ure, somewhat reniform in shape with possible subtle fatty hilum. This may correlate with the mammogr aphic abnormality, and could reflect a benign lymph node. There is an additional 3 mm hypoechoic circ umscribed mass at the 12:00 position left breast, 1 cm from the nipple, stable from prior exam. IMPRESSION: No definite mammographic evidence for malignancy. Suspected intramammary lymph node in the left deep[address], stable mammographic asymmetry, as detailed above. Stable subcentimeter left breast lesion 12:00, also probably benign. Bilateral mammography and repeat left breast ultrasound recommended in 6 months . BI-RADS category 3, probably benign findings. Reviewed, dictated and finalized at location . IMPRESSION: No definite mammographic evidence for malignancy. Suspected intramammary lymph node in the left breast, stable mammographic asymmetry, as detailed above. Sta ble subcentimeter left breast lesion 12:00, also probably benign. Bilateral seferino mography and repeat left breast ultrasound recommended in 6 months. BI-RADS category 3, probably benign findings.
== END 2023-09-02 08:46 ==
PROVIDERS: PCP Nurse Practitioner Family; Visit Provider Nurse Practitioner Family
DX: R92.8 Other abnormal and inconclusive findings on diagnostic imaging of breast (principal); N63.20 Unspecified lump in the left breast, unspecified quadrant
CPT/HCPCS: 76642; 77061; 77065; G0279

== ENCOUNTER 2023-09-02 08:50 | Outpatient (CLI) | payer BC, SELFPAY ==
--- NOTE | ~2023-09-02 | XR_ITS ---
EXAMINATION: XR chest 2V DATE: 09/02/2023 09:10 INDICATION: Chronic kidney disease. TECHNIQUE: Frontal and lateral views of the chest were obtained. COMPARISON: None. FINDINGS: There is no pneumonia, pleural effusion, or pneumothorax. The heart size is normal. There i s mild chronic anterior wedging of multiple lower thoracic vertebral bodies. IMPRESSION: 1. No acute cardiopulmonary disease. Reviewed, dictated and finalized at location A.
== END 2023-09-02 08:51 ==
LOC: MICIMG 08:52
PROVIDERS: PCP Nurse Practitioner Family; Visit Provider Internal Medicine Nephrology
DX: N18.32 Chronic kidney disease, stage 3b (principal)
CPT/HCPCS: 71046

== ENCOUNTER 2024-02-11 09:16 | Outpatient (CLI) | payer BC, SELFPAY ==
--- NOTE | ~2024-02-11 | MMUS_ITS ---
EXAMINATION: MM diagnostic seferino BI w diego, US breast LT limited HISTORY: Follow-up left breast mass TECHNIQUE: Additional 3-D tomosynthesis images of the breasts were performed and synthetic 2-D images were generated. CAD analysis was submitted and interpreted. High resolution Limited left breast ultr asound was performed. COMPARISON: Comparison to multiple prior studies sequentially, with oldest reviewed study dated 01/10. BREAST PARENCHYMAL COMPOSITION: Not dense: There are scattered areas of fibroglandular density. FINDINGS: MAMMOGRAPHIC FINDINGS: There are no suspicious masses, calcifications or architectural distortion in either breast to sugges t malignancy. The breasts are stable. Nodular asymmetries in the subareolar location of the left deepak st are stable. ULTRASOUND: Limited left breast ultrasound: At 12:00, 1 cm from the nipple there is a 3 mm cyst. No suspicious ma sses to suggest malignancy. IMPRESSION: 1. No evidence for malignancy in either breast. 2. Routine yearly screening mammogram and regular clinical breast examination are recommended. BI-RADS Category 2: Benign finding(s). Reviewed, dictated and finalized at location B. RINARY ASSISTANT TECHNICIAN IMPRESSION: 1. No evidence for malignancy in either breast. 2. Routine yearly screening mammogram and regular clinical breast examination a re recommended. BI-RADS Category 2: Benign finding(s).
== END 2024-02-11 09:17 | disposition home or self-care (01) ==
PROVIDERS: PCP Nurse Practitioner Family; Visit Provider Surgery
DX: R92.8 Other abnormal and inconclusive findings on diagnostic imaging of breast (principal); N60.02 Solitary cyst of left breast
CPT/HCPCS: 76642; 77062; 77066; G0279

== ENCOUNTER 2024-03-03 11:09 | Emergency (ER) | payer BC, SELFPAY ==
[2024-03-03 11:50] VITALS: BP 134/88; PULSE 80; RESP 20; TEMP 37.2; O2SAT 100
--- NOTE | 2024-03-03 11:59 | ED_ITS ---
HPI - URI/Sore Throat General Chief Complaint: Upper Respiratory Infection Stated Complaint: Sinus/Vomiting Time Seen by Provider: 03/03/24 11:59 Source: patient, RN notes reviewed and old records reviewed Mode of arrival: ambulatory Limitations: no limitations History of Present Illness HPI Narrative: Patient presents with complaints of 4 days of runny nose, cough, decreased energy. She reports on 1st day of symptoms she did have some nausea, vomiting, diarrhea. She reports that this has subsided but her cough has gotten worse. She has had some chills and sweats, but has not taken her temperature. She has been taking DayQuil and NyQuil with moderate relief. Related Data Home Medications ?Medication ?Instructions ?Recorded ?Confirmed ?Last Taken ?Type vortioxetine 10 mg tablet 10 mg PO QAM 05/27/23 03/03/24 06/11/23 History (Trintellix) melatonin 10 mg tablet 20 mg PO QHS 11/20/23 03/03/24 Unknown History Allergies Allergy/AdvReac Type Severity Reaction Status Date / Time fentanyl AdvReac Mild Itching Verified 03/03/24 11:50 oxycodone (From Percocet) AdvReac Itching Verified 03/03/24 11:50 Review of Systems Review of Systems: All systems reviewed & are unremarkable except as noted in HPI and below Constitutional: Constitutional: Reports no additional constitutional complaints and Reports lethargy ENT: Reports system reviewed and no additional complaints, except as documented, Reports nasal congestion and Reports nasal discharge Cardiovascular: Cardiovascular: Reports no additional cardiovascular complaints Respiratory: Respiratory: Reports no additional respiratory complaints and Reports cough Gastrointestinal: Gastrointestinal: Reports no additional gastrointestinal complaints PMFSH Past Medical History Medical History Vitamin D deficiency Mass of left breast Abnormal Pap smear of cervix (~10/2022) Thoracic spine pain Tobacco dependence Depression HTN (hypertension) GERD (gastroesophageal reflux disease) Anxiety Surgical History Surgical History History of colposcopy (~12/2022) Normal - Dr Barger History of total left knee replacement 06/20/2022 History of gynecological procedure (~1979) Cryo of cervix . per patient abnormal paps H/O right knee surgery (~2018) Right knee 2019, 2020 Family History Family History Father Cancer Mother Depression Anxiety Heart problem Thyroid disorder Cancer Sibling Cancer Social History Social History Smoking packs per day: 1 Smoking cigarettes per day: 20.0 Years smoked: 35 Smoking pack-years: 35.00 Smoking status: Light tobacco smoker Tobacco type: cigarettes Second hand tobacco smoke exposure: Yes (OCCASIONALLY) Smoking end date: 05/20/23 Additional smoking assessment comments: RECENTLY SMOKING 1 PACK/WEEK-STOPPED 05/20/23 FOR RTKA SURGERY Alcohol intake: current Drinks per week: 5 Alcohol use details: occasionally Substance use: current Substance use type: marijuana Do You Feel Safe in your Home?: Yes Lack of Transportation: No Lack of Food: Never True Current Housing: I Have Housing Concerned About Future Housing: No Difficulty Paying Gas/Electric Bills: No Difficulty Paying for Meds: No Currently Unemployed: No Education: Bachelor's Degree Difficulty w/ Childcare or Family Care: No Living arrangements: other Additional living arrangements comments: SIGNIFICANT OTHER Occupation/Education: occupation Gender identity (if verbalized by the patient): Female Spiritual care concerns: No Agree to blood products: Yes Comments At the time of my signature, I reviewed and agree with the nursing past medical, surgical, social, and family history. There is no relevant family history pertinent to the patient complaint. Exam Const: General: cooperative, no acute distress, alert and awake Orientation/consciousness: oriented to person, oriented to place and oriented to time HENMT: Head: normal to inspection Resp: Effort & Inspection: normal respiratory effort and able to speak in complete sentences Auscultation: clear to auscultation bilaterally, no crackles, no rales, no rhonchi and no wheezes Cardio: Palpation: normal PMI Rate: regular rate Rhythm: regular rhythm Heart sounds: S1 normal heart sound present and S2 normal heart sound present Neuro: General: oriented to person, oriented to place and oriented to time Cranial nerves: Yes CN's II-XII intact bilaterally Psych: Appearance: grossly normal Thought process: Normal thought process present Insight: Good insight present (Psych) Judgement: Good judgement present (Psych) Course Course Level of Care: Express Care Visit Vital Signs Vital signs: Reviewed MDM - URI/Sore Throat MDM Narrative Medical decision making narrative: Negative strep, culture pending. COVID positive, flu negative. Supportive care measures discussed. Patient nontoxic appearing, no distress. Discharge instructions reviewed with patient, as well as provided in writing per nursing staff. The instructions also include specific and strict return/GO TO THE ER as well as f/u information. All questions have been answered, and the patient deny any further questions with discharge and discharge plan. Some parts of this dictation were generated by voice recognition software and may contain typographical and/or grammatical inaccuracies. Differential Diagnosis Differential diagnosis: Likely upper respiratory infection, otitis media, sinusitis, viral infection, influenza and pharyngitis Medical Records Attestation: I reviewed the patient's medical records. Lab Data Attestation: I reviewed the patient's lab results. Discharge Plan Discharge Clinical Impression: COVID-19 Patient Disposition: Home, Self-Care Condition: Stable Instructions: Antibiotic Form, How to Recover from COVID-19 at Home (ED) Additional Instructions: Take [id number] medications to treat your symptoms. Follow with primary care provider. Emergency department for new or worse symptoms Patient Language: Uzbek Prescriptions: No Action melatonin 10 mg tablet 20 mg PO QHS Trintellix 10 mg tablet 10 mg PO QAM Patient Comments: QAM omeprazole 40 mg capsule,delayed release(DR/EC) 40 mg PO QAM Qty: 90 1RF triamterene-hydrochlorothiazid 37.5-25 mg tablet 1 tablet PO DAILY Qty: 90 1RF hydroxyzine pamoate [Vistaril] 25 mg capsule 25 mg PO BID PRN (Reason: anxiety) Qty: 180 1RF metoprolol tartrate 50 mg tablet 50 mg PO BID Qty: 180 1RF Follow-up/Referrals: PHYSICIAN,INSTRUMENT PERSON [Primary Care Provider] - Time of Disposition: 12:23
[2024-03-03 19:17] LABS: EDCOVIDSCREEN Positive (Negative); EDINFLUASCREEN Negative (Negative); EDINFLUBSCREEN Negative (Negative); EDSTREPNEGPOS1 Negative (Negative)
== END 2024-03-03 12:30 | disposition home or self-care (01) ==
PROVIDERS: Emergency Provider Nurse Practitioner Family
DX: U07.1 COVID-19 (principal); I10 Essential (primary) hypertension; F17.210 Nicotine dependence, cigarettes, uncomplicated
CPT/HCPCS: 87081; 87426; 87804; 87880; 99213; G0463

== ENCOUNTER 2024-07-26 09:46 | Emergency (ER) | payer BC, SELFPAY ==
[2024-07-26 09:55] VITALS: BP 127/80; PULSE 109; RESP 16; TEMP 36.4; O2SAT 99
--- NOTE | 2024-07-26 10:11 | ED_ITS ---
HPI - General Adult General Chief complaint: Skin/Abscess/Foreign Body Stated complaint: Eyes Irritation Time Seen by Provider: 07/26/24 10:12 Source: patient, RN notes reviewed and old records reviewed Mode of arrival: ambulatory Limitations: no limitations History of Present Illness HPI narrative: 64 year old female who presents to [facility] care with complaints of facial swelling under her eyes and around nose which has progressed since Saturday. Patient reports that initially she had some puffiness under her eyes on Saturday and started taking some allergy multi symptoms medication. Patient reports that since yesterday her facial swelling has been increasing and her nose feels tight and throbbing. and she has tenderness and swelling under the left jaw line with palpable tenderness noted. Patient reports that she has applied ice to her face and has continued to take allergy multi symptom medication. Patient reports that she did have a soreness inside her left nares a week ago with no pimple or sore noted. MD complaint: facial swelling with redness under bilateral eyes, nose,pain under left jaw Onset (ago): day(s) (2-3 days) Location: face and neck (pain under left jaw) Severity scale (1-10): 6 Quality: aching Pain Consistency: constant Treatments prior to arrival: cold therapy and other (multi-symptom allergy medication) Related Data Home Medications Medication Instructions Recorded Confirmed Last Taken Type vortioxetine 10 mg tablet 10 mg PO QAM 05/27/23 07/26/24 07/25/24 History (Trintellix) melatonin 10 mg tablet 20 mg PO QHS 11/20/23 07/26/24 07/25/24 History Allergies Allergy/AdvReac Type Severity Reaction Status Date / Time fentanyl AdvReac Mild Itching Verified 07/26/24 11:10 oxycodone (From Percocet) AdvReac Itching Verified 07/26/24 11:10 Review of Systems Review of Systems: CONSTITUTIONAL: Denies fever, reports that she has had chills, or sweats. EYES: Denies visual changes, redness, or discharge, positive for swelling under eyes that has increased ENT: Denies rhinorrhea, reports feelings of nasal congestion, no sore throat, or otalgia. CARDIOVASCULAR: Denies chest pain, palpitations, or edema. RESPIRATORY: Denies cough or dyspnea. GASTROINTESTINAL: Denies abdominal pain, nausea, vomiting, or diarrhea. GENITOURINARY: Denies dysuria or hematuria. SKIN: Denies rash or itching.positive for swelling and redness under bilateral eyes, of her nose which is probably 2 times it normal size and extending towards her forehead with tenderness of skin tissue. Patient reports no known fevers, reports soreness under her left jaw line with some swelling noted . MUSCULOSKELETAL: Denies back pain, joint pain, or myalgia. NEUROLOGIC: Denies headache, numbness, or weakness. PSYCHIATRIC: Positive for history of anxiety or depression. All systems reviewed & are unremarkable except as noted in HPI and below PMFSH Past Medical History Medical History Vitamin D deficiency Mass of left breast Abnormal Pap smear of cervix (~10/2022) Thoracic spine pain Tobacco dependence Depression HTN (hypertension) GERD (gastroesophageal reflux disease) Anxiety Surgical History Surgical History History of total right knee replacement (TKR) 06/2023 History of colposcopy (~12/2022) Normal - Dr Barger History of total left knee replacement 06/20/2022 History of gynecological procedure (~1979) Cryo of cervix . per patient abnormal paps H/O right knee surgery (~2018) Right knee 2019 Family History Family History Father Cancer Mother Depression Anxiety Heart problem Thyroid disorder Cancer Sibling Cancer Social History Social History Smoking packs per day: 0.5 Smoking cigarettes per day: 10.0 Years smoked: 35 Smoking pack-years: 17.50 Smoking status: Light tobacco smoker Tobacco type: cigarettes Second hand tobacco smoke exposure: Yes (OCCASIONALLY) Additional smoking assessment comments: Prevously SMOKING 1 PACK/WEEK; stopped 05/20/23 for surgery, then resumed Alcohol intake: current Drinks per week: 5 Alcohol use details: occasionally Substance use: former Substance use type: marijuana Do You Feel Safe in your Home?: Yes Lack of Transportation: No Lack of Food: Never True Current Housing: I Have Housing Concerned About Future Housing: No Difficulty Paying Gas/Electric Bills: No Difficulty Paying for Meds: No Currently Unemployed: No Education: Bachelor's Degree Difficulty w/ Childcare or Family Care: No Living arrangements: other Additional living arrangements comments: SIGNIFICANT OTHER Occupation/Education: occupation Gender identity (if verbalized by the patient): Female Spiritual care concerns: No Agree to blood products: Yes Comments At time of signature, agree with nursing past medical, surgical, social and family history. There is no relevant family history pertinent to the presenting complaint Exam Narrative: GENERAL:ill-appearing, well-nourished, and in no acute distress. HEAD: Normocephalic, atraumatic. EYES: PERRLA and EOMI. swelling under bilateral eyes down into nose with nose at least 2x's normal size and red throbbing has tenderness under left jawline also ENT: Nares clear, no rhinorrhea or epistaxis. Mucous membranes moist.TM's normal throat pink with no exudates or lesions no pain with swallowing. NECK: Supple. lymphadenopathy with tenderness to left jaw region CHEST: Clear to auscultation. No respiratory distress.SAO2 99% on room air HEART: Regular rate and rhythm. No murmur heard. Normal peripheral pulses. ABDOMEN: Soft, nontender, nondistended, normal active bowel sounds. EXTREMITIES: Normal range of motion. No edema. SKIN: Warm, dry, no rash. NEURO: No focal deficits. Alert and oriented x3. Course Course Emergency Course: Patient is aware of diagnosis, understands and agrees to treatment plan. Anticipatory guidance given. Patient agrees to follow-up as directed and is aware of reasons to seek care at the emergency department. Portions of this record may have been created with voice recognition software Level of Care: Express Care Visit Vital Signs Vital signs: Reviewed Transfer Transfered to: [facility] (emergency dept) Transportation: Other (private car with family member) Transfer rationale: facial cellulitis with pain and tenderness to left jaw line Accepting physician: Dr Booth Transfer comments: Patient requires higher level of care and testing that can not be provided in urgent care.To ED with family per private car Medical Decision Making MDM Narrative Medical decision making narrative: 1026 Reports called to [facility] ED and spoke with Dr Booth with condition update ,VS, PMH reviewed with Dr Booth accepting patient for transfer Differential Diagnosis Differential Diagnosis: facial cellulitis, pain and swelling under left jaw line, pain to face and jaw line Medical Records Medical records reviewed: Yes I reviewed the external patient's medical records. Critical Care Time Critical Care Time Critical Care Time: No Discharge Plan Discharge Clinical Impression: Cellulitis of face, Jaw inflammation, left, Jaw pain, non-TMJ Patient Disposition: Acute Care Hospital Condition: Stable Instructions: Antibiotic Form Patient Language: Nepali Prescriptions: No Action melatonin 10 mg tablet 20 mg PO QHS Trintellix 10 mg tablet 10 mg PO QAM Patient Comments: QAM triamterene-hydrochlorothiazid 37.5-25 mg tablet 1 tablet PO DAILY Qty: 90 1RF hydroxyzine pamoate [Vistaril] 25 mg capsule 25 mg PO BID PRN (Reason: anxiety) Qty: 180 1RF omeprazole 40 mg capsule,delayed release(DR/EC) 40 mg PO QAM Qty: 90 1RF metoprolol tartrate 50 mg tablet 50 mg PO BID Qty: 180 1RF Follow-up/Referrals: Shawna Rodriguez WAITER/WAITRESS [Primary Care Provider] - Time of Disposition: 10:26 Quality Reji Coma Scale Eyes: Open Verbal: Oriented and Alert Motor: Follows Commands Marianna Coma Total Score: 15
== END 2024-07-26 10:28 | disposition short-term general hospital (02) ==
PROVIDERS: Emergency Provider Registered Nurse; PCP Nurse Practitioner Family
DX: L03.211 Cellulitis of face (principal); M27.2 Inflammatory conditions of jaws; R68.84 Jaw pain; F17.210 Nicotine dependence, cigarettes, uncomplicated; I10 Essential (primary) hypertension; K21.9 Gastro-esophageal reflux disease without esophagitis; F41.9 Anxiety disorder, unspecified; F32.A Depression, unspecified; Z96.653 Presence of artificial knee joint, bilateral
CPT/HCPCS: 99212; G0463

== ENCOUNTER 2024-07-26 10:47 | Inpatient (IN) | payer BC, SELFPAY ==
[2024-07-26] VITALS (8 sets, daily range): BP systolic 130–149; BP diastolic 70–103; PULSE 78–103; RESP 16–20; TEMP 36.8–37.2; O2SAT 96–100; BMI 29.2
--- NOTE | ~2024-07-26 | CT_ITS ---
CT soft tissue neck w con Ordering provider: Jeane Booth MD History: 64 years Female with palpable lymphadenopathy (L > R) . Comparison: None. Technique: CT soft tissues neck was performed with contrast. The dose-length product was 570.48 mGy-cm. Findings: LOWER HEAD: The visualized brain parenchyma, optic globes/orbits and mastoids are unremarkable. The visualized paranasal sinuses are well aerated. SALIVARY GLANDS: Unremarkable. THYROID: Symmetric. SUPRAHYOID DEEP SPACES: Unremarkable CAROTID ARTERIES: Densely calcified. JUGULAR VEINS: Patent TONSILS: Prominent, without pathologic enlargement. ORAL CAVITY: Partially obscured by dental amalgam but unremarkable as visualized. PHARYNX, LARYNX AND TRACHEA: Patent and symmetric. No prevertebral soft tissue swelling. SUPERFICIAL SOFT TISSUES: Prominent cervical and submandibular lymphadenopathy without pathologic enl argement or morphologic suspicion. THORACIC INLET/VISUALIZED UPPER CHEST: Unremarkable SKELETAL: Age appropriate degenerative changes. IMPRESSION: 1. Prominent cervical lymphadenopathy without morphologically suspicious or pathologically enlarged lymph nodes. Reviewed, dictated and finalized at location A. IMPRESSION: 1. Prominent cervical lymphadenopathy without morphologically suspicious or pa thologically enlarged lymph nodes.
--- NOTE | ~2024-07-26 | MR_ITS ---
EXAMINATION: MR orbits face neck wo/w con DATE: 07/28/2024 10:21 INDICATION: Facial swelling TECHNIQUE: Magnetic resonance imaging (MRI) of the brain and brainstem was performed without and with 15 mL Multihance intravenous contrast. Sequences included sagittal and axial T1-weighted SE, axial d iffusion-weighted FS EPI, axial T2*-weighted GRE, axial T2-weighted FLAIR Propeller, and axial T2-genaro ghted Propeller. Small mzhca-nf-zevt sequences of the orbits included coronal and axial T2-weighted F S FSE and T1-weighted FSE. Postcontrast sequences included axial T1-weighted SE and small field-of-vi ews axial and coronal T1-weighted FS FSE. Apparent diffusion coefficient (ADC) maps were created. COMPARISON: CT dated 07/26/2024 FINDINGS: There are no areas of restricted diffusion to suggest acute infarction. 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 No intracranial hemorrhage or abnormal intracranial mass lesion. There are a few small scattered foci of nonspecific increased T2-weighted signal intensity in the cerebral white matter, predominantly involving the deep and periventricular white matter. There are no intraparench ymal signal abnormalities seen on the other pulse sequences.No abnormal enhancing intracranial lesion s. The ventricles are symmetric and normal in size. There are no abnormal extra-axial fluid collectio ns. Flow voids are seen in the cerebral arteries on the T2-weighted sequences consistent with their e xpected patency. There is subcutaneous edema and reticulated pattern of non masslike enhancement cent ered in the bilateral malar regions extending into the inferior preseptal soft tissues and extending across the bridge of the nose. Bilateral orbits are otherwise normal with no preseptal inflammatory c hanges. No abscess. Mild mucosal thickening the bilateral ethmoid sinuses. IMPRESSION: 1. Subcutaneous edema and non masslike enhancement in the subcutaneous tissues at the bilateral malar regions extending into the inferior preseptal soft tissues and across bridge of the nose consistent with nonspecific cellulitis without abscess. Orbits are otherwise normal with no post septal inflamma tory stranding. 2. 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 No acute intracranial process. Reviewed, dictated and finalized at location A. IMPRESSION: 1. Subcutaneous edema and non masslike enhancement in the subcutaneous tissues at the bilateral malar regions extending into the inferior preseptal soft tissu es and across bridge of the nose consistent with nonspecific cellulitis without abscess. Orbits are otherwise normal with no post septal inflammatory strandin g. 2. 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 No acute intracranial process.
--- NOTE | ~2024-07-26 | CT_ITS ---
CT facial bones w con Ordering provider: Jeane Booth MD History: . Facial cellulitis, evaluate underlying spread . Comparison: None. Technique: Thin slice axial CT of the facial bones was performed without contrast. Coronal and sagit jolene reformatted images were also obtained. . The dose-length product was 438.91 mGy-cm. FINDINGS: PARANASAL SINUSES: Well aerated. BONES: No acute facial fracture including no acute nasal bone fracture. Findings suggestive of prior right-sided nasal bone fracture ORBITS AND SUPERFICIAL SOFT TISSUES: The optic globes and orbits are unremarkable. The superficial so ft tissues are symmetric. No rim-enhancing fluid collection. VISUALIZED MASTOIDS: Well aerated. LIMITED VISUALIZED BRAIN PARENCHYMA: Unremarkable. IMPRESSION: Findings suggesting prior right-sided nasal bone fracture. Otherwise, unremarkable CT examination of the facial bones, as detailed above. Reviewed, dictated and finalized at location A.
--- OUTSIDE RECORDS SUMMARY | 2024-07-26 10:49 | XMS_ITS | Continuity of Care Document ---
Author Organization [facility] Address [address] [place] [address] Phone Care Team Providers Care Med Spa Manager Name Role Phone Tabitha SOLER Argenis Unavailable Unavailable Procedures Procedure Date PREV VISIT, EST, AGE 40-64 CYTOPATH, C/V, MANUAL Advance Directives Directive Yes / No Effective Date File Name No Information Encounters Encounter Description Practice Location Reason(s) For Visit Diagnoses Date Provider Providers Copied on Encounter PREV VISIT, EST, AGE 40-64 [facility] Care [facility], [address], [place], [place], [id number], [place] tel:[phone] [facility] No Information Tabitha Argenis. [address], [place], [place], [id number], [place]. tel:[phone] Referring Provider: Argenis Monson, [address], [place], [address]. tel:[phone] Family History Family Member Type Diagnosis Age At Onset No Information Payers Payer name Insurance type Covered democrat ID Authoriza tivianney(s) [employer] CI [id number] Social History Type Description Quantity Date Captured Comments Sex Female Smoking Status No Information Chief Complaint And Reason For Visit No Information Reason For Referral Reason For Referral No Information History Of Present Illness Encounter Date Complaint History Of Prese nt Illness No Information Functional Status Date Functional Assessmen t No Information Instructions Date Instruction Additional Infor mation No Information Assessments Type Assessment Date No Information Patient Care Teams Name Effective Dates (start - stop) Status Members No Information
--- NOTE | 2024-07-26 11:08 | ED_ITS ---
HPI - Skin/Abscess/Foreign Bdy General Chief complaint: Skin/Abscess/Foreign Body Stated complaint: FACIAL SWELLING,REDNESS X3D Time Seen by Provider: 07/26/24 11:06 Source: patient and other (WILI Gonzales at [facility]) Mode of arrival: ambulatory History of Present Illness HPI narrative: Provider at urgent care had called prior to patient's arrival providing following history: Patient developed swelling around her eyes on Saturday which then spread to her face and nose which were described as red and painful. BNP also noted that she had a spot on her left neck under her jaw that was tender and swollen. Patient was afebrile at the urgent care and reportedly no fever at home although she had reported chills and sweats. Half [id number] smoker. BP 127/80. Allergies confirmed as in EMR. = Patient confirms the above. She notes that rhinorrhea started only when she arrived to the emergency department. Patient states she had noticed a small lesion inside her left naris prior to this occurring but that is the only thing she believes might have been the cause. She had noticed this approximately 1 week ago. She had not taken any pain medication the house. She is only trialed [id number] allergy medication as well as applying a baggie of ice. She states the pressure continues to worsen. She denies any vision changes including no blurred or double vision. She denies any pain with eye movements. No history of diabetes mellitus. She does note that she has 4-5 alcoholic drinks daily with her last one occurring last evening. She denies any history of withdrawal or complicated withdrawal such as delirium tremens or seizures. Related Data Home Medications ?Medication ?Instructions ?Recorded ?Confirmed ?Last Taken ?Type vortioxetine 10 mg tablet 10 mg PO QAM 05/27/23 07/26/24 07/25/24 History (Trintellix) melatonin 10 mg tablet 20 mg PO QHS 11/20/23 07/26/24 07/25/24 History Allergies Allergy/AdvReac Type Severity Reaction Status Date / Time fentanyl AdvReac Mild Itching Verified 07/26/24 11:10 oxycodone (From Percocet) AdvReac Itching Verified 07/26/24 11:10 [facility] Past Medical History Medical History Vitamin D deficiency Mass of left breast Abnormal Pap smear of cervix (~10/2022) Thoracic spine pain Tobacco dependence Depression HTN (hypertension) GERD (gastroesophageal reflux disease) Anxiety Surgical History Surgical History History of total right knee replacement (TKR) 06/2023 History of colposcopy (~12/2022) Normal - Dr Charbel History of total left knee replacement 06/20/2022 History of gynecological procedure (~1979) Cryo of cervix . per patient abnormal paps H/O right knee surgery (~2018) Right knee 2019 Family History Family History Father Cancer Mother Depression Anxiety Heart problem Thyroid disorder Cancer Sibling Cancer Social History Social History Smoking packs per day: 0.5 Smoking cigarettes per day: 10.0 Years smoked: 45 Smoking pack-years: 22.50 Smoking status: Current every day smoker Tobacco type: cigarettes Second hand tobacco smoke exposure: No Additional smoking assessment comments: Prevously SMOKING 1 PACK/WEEK; stopped 05/20/23 for surgery, then resumed Alcohol intake: current Drinks per week: 5 Alcohol use details: occasionally Substance use: former Substance use type: marijuana Do You Feel Safe in your Home?: Yes Lack of Transportation: No Lack of Food: Never True Current Housing: I Do Not Have Housing Concerned About Future Housing: No Difficulty Paying Gas/Electric Bills: No Difficulty Paying for Meds: No Currently Unemployed: No Education: Bachelor's Degree Difficulty w/ Childcare or Family Care: No Living arrangements: other Additional living arrangements comments: SIGNIFICANT OTHER Occupation/Education: occupation Gender identity (if verbalized by the patient): Female Spiritual care concerns: No Agree to blood products: Yes Exam 2 Narrative: GENERAL: well-nourished, and in no acute distress. HEAD: Normocephalic, atraumatic. EYES: Non injected, non icteric. No chemosis. Not proptotic. Patient demonstrates horizontal and vertical extraocular movements without pain or limitation. ERYTHEMA AND EDEMA OF upper and lower eyelids, not to the level of eyebrow and does not extend as far as lateral creases bilaterally. PERRL ENT: Nares clear, no rhinorrhea or epistaxis. Bilateral nares hyperemic. Bilateral TMs easily visualized without bulging/effusion/erythema. Mild tongue fasciculations. Tacky mucous membranes. No dysphonia. NECK: Supple. Anterior Cervical lymphadenopathy most appreciated on left. CHEST: Speaking in full sentences. No respiratory distress. HEART: Regular rate and rhythm. . ABDOMEN: Soft, nondistended. EXTREMITIES: Normal range of motion. No lower extremity edema. SKIN: Warm, dry. Erythematous rash periorbitally as above. Also across bridge of nose and extending into central forehead and throughout nose and extending laterally along medial aspect of bilateral cheeks. Warm and tender to the touch. Hyperemeic and mildly more prominent at the central aspect of forehead but without sergio induration/fluctuance. NEURO: No focal deficits. Alert and oriented x3. Speaks clearly without aphasia or dysarthria. No loss of the nasolabial fold or paralysis of face. Tongue protrudes midline without deviation. PSYCH: Congruent mood and affect. Course Vital Signs Vital signs: Vital Signs Pulse Rate 103 H 07/26/24 10:48 Respiratory Rate 16 07/26/24 10:48 Blood Pressure 147/103 H 07/26/24 10:48 Pulse Oximetry 99 07/26/24 10:48 Temperature 98.9 F 07/26/24 20:25 Pulse Rate 74 07/27/24 04:00 Respiratory Rate 20 07/26/24 21:21 Blood Pressure 130/70 07/27/24 00:00 Pulse Oximetry 96 07/26/24 21:21 Oxygen Delivery Room Air 07/26/24 21:21 Fraction of Inspired Oxygen 07/26/24 21:21 MDM - Skin/Abscess/Foreign Bdy MDM Narrative Medical decision making narrative: Patient presents erythematous tender facial rash and swelling. Rash started around bilateral eyes and then spread across nose and medial aspect of cheeks. Patient initially presented to urgent care and advised to come to ED. In the emergency department she is afebrile vital signs notable for mild tachycardia as well as hypertension. Notified of critical hypokalemia at less than 3. Magnesium lab ordered. IV and oral repletion ordered. Magnesium also low, supplementation ordered. Analgesic medication ordered, Tylenol initially given due to listed allergy to opiates but subsequently cancelled as patient believes she has had Hart before after a surgery, this is ordered. She has had chronic intermittent hyponatremia. Patient's creatinine is at baseline and/or actually improved, consistent with baseline CKD. No leukocytosis, anemia, thrombocytopenia/thrombocytosis. Elevated CRP and ESR. Swelling started around her eyelids and spread across her nose and cheeks. She has swelling and erythema of the eyelids and superficial tissues surrounding the orbit but there does not appear to be significant proptosis, chemosis, limitation or pain with eye movements inpatient wreck denies any double vision vision loss/changes making orbital cellulitis less likely. Given the repeated the spread and swelling, IV antibiotics in the form of vancomycin + ampicillin/sulbactam (3g IV q6hr) are ordered with blood cultures to be obtained prior. Discussed need or recommendation for admission with patient and she concurs. The swelling and tenderness is already starting to improve and patient appears more comfortable. Visual acuity 20/70 on the R, 20/25 on the left per RN though again, patient had no visual complaints and reassuring physical exam otherwise. Patient discussed with on-call hospitalist WILI Elias. Accepted for admission. Differential Diagnosis Differential diagnosis: Likely abscess of skin or subcutaneous tissue, cellulitis, insect bites and other (malar rash; considered septal versus preseptal cellulitis) Lab Data Attestation: I reviewed the patient's lab results. 07/27/24 04:22 07/27/24 04:22 Labs: Lab Results 07/26/24 07/26/24 Range/Units 11:41 11:42 WBC 8.2 (4.5-10.0) K/mm3 RBC 4.46 (4.2-5.4) M/mm3 Hgb 14.7 D (12.0-15.0) g/dL Hct 40.6 (37.0-47.0) % MCV 91.0 (80-100) fl MCH 33.0 (26-34) pg MCHC 36.2 H (32-36) g/dl RDW 12.5 (11.5-14.5) % Plt Count 204 (150-375) k/mm3 MPV 9.5 (7.4-10.4) fl Immature Gran % (Auto) 0.4 (0-0.5) % Neut % (Auto) 58.0 (45.5-73.1) % Lymph % (Auto) 29.7 (18.3-44.2) % [place] % (Auto) 11.3 H (2.6-8.5) % Eos % (Auto) 0.2 (0-4.4) % Baso % (Auto) 0.4 (0.2-1.2) % Lymph # (Auto) 2.42 (0.9-3.2) K/mm3 [place] # (Auto) 0.9 H (0.1-0.6) K/mm3 Eos # (Auto) 0.0 (0-0.3) K/mm3 Baso # (Auto) 0.0 (0.0-0.1) K/mm3 Abs Immat Gran (auto) 0.03 (0.00-0.031) K/mm3 Absolute Neuts (auto) 4.7 (1.3-6.7) K/mm3 Absolute Nucleated RBC 0.000 (0.0-0.012) K/mm3 Nucleated RBC % 0.0 (0.0-0.2) % ESR 47 H (0-20) mm/hr Sodium 131 L (137-145) mmol/L Potassium 2.8 L* (3.4-5.0) mmol/L Chloride 94 L (98-107) mmol/L Carbon Dioxide 26 (22-30) mmol/L Anion Gap 11 (4-12) mmol/L BUN 15 D (7-17) mg/dL Creatinine 1.13 H (0.7-1.0) mg/dL Estim Creat Clear Calc 45 ml/min Estimated GFR 49 L (59 - ) Glucose 97 (65-110) mg/dL Calcium 9.8 (8.4-10.2) mg/dL Magnesium 1.4 L (1.6-2.3) mg/dL C-Reactive Protein 11.5 H (<1.0) mg/dL Imaging Data Radiologist's impression: Impressions Soft Tissue Neck CT 07/26/24 13:13 IMPRESSION: 1. Prominent cervical lymphadenopathy without morphologically suspicious or pathologically enlarged lymph nodes. Face CT 07/26/24 13:20 IMPRESSION: Findings suggesting prior right-sided nasal bone fracture. Otherwise, unremarkable CT examination of the facial bones, as detailed above. Discharge Plan Discharge Clinical Impression: Acute hypokalemia, Cellulitis of periorbital region of both eyes, Cellulitis diffuse, face, Hypomagnesemia, Hyponatremia, CKD (chronic kidney disease), CRP elevated, Elevated erythrocyte sedimentation rate, Adenopathy, cervical, Alcohol consumption heavy Patient Disposition: Still a Patient Condition: Stable
--- OUTSIDE RECORDS SUMMARY | 2024-07-26 11:16 | XMS_ITS | Continuity of Care Document ---
Author Organization [facility] Address [address] [place] [address] Phone Care Team Providers Care Offbearer Sewer Pipe Name Role Phone Tabitha SOLER Argenis Unavailable Unavailable Procedures Procedure Date PREV VISIT, EST, AGE 40-64 CYTOPATH, C/V, MANUAL Advance Directives Directive Yes / No Effective Date File Name No Information Encounters Encounter Description Practice Location Reason(s) For Visit Diagnoses Date Provider Providers Copied on Encounter PREV VISIT, EST, AGE 40-64 [facility] Care [facility], [address], [place], [place], [id number], [place] tel:[phone] [facility] No Information Tabitha Argenis. [address], [place], [place], [id number], [place]. tel:[phone] Referring Provider: Argenis Monson, [address], [place], [address]. tel:[phone] Family History Family Member Type Diagnosis Age At Onset No Information Payers Payer name Insurance type Covered republican ID Authoriza tivianney(s) [employer] CI [id number] Social History Type Description Quantity Date Captured [...]
[2024-07-26 11:46] LABS: Basophils Percent Auto 0.4 % (0.2-1.2); Eosinophils Percent Auto 0.2 % (0-4.4); Hematocrit 40.6 % (37.0-47.0); Hemoglobin 14.7 g/dL (12.0-15.0); Immature Granulocyte Absolute 0.03 K/mm3 (0.00-0.031); Immature Granulocyte Percent A 0.4 % (0-0.5); Lymphocytes Absolute Auto 2.42 K/mm3 (0.9-3.2); Lymphocytes Percent Auto 29.7 % (18.3-44.2); Mean Corpuscular HGB Conc 36.2 g/dl (32-36); Mean Platelet Volume 9.5 fl (7.4-10.4); Monocytes Absolute Auto 0.9 K/mm3 (0.1-0.6); Monocytes Percent Auto 11.3 % (2.6-8.5); Neutrophils Absolute Auto 4.7 K/mm3 (1.3-6.7); Platelet Count Result 204 k/mm3 (150-375); Red Blood Count 4.46 M/mm3 (4.2-5.4); Red Cell Distribution Width 12.5 % (11.5-14.5); White Blood Count 8.2 K/mm3 (4.5-10.0)
[2024-07-26 12:00] LABS: Anion Gap 11 mmol/L (4-12); Blood Urea Nitrogen 15 mg/dL (7-17); Calcium 9.8 mg/dL (8.4-10.2); Carbon Dioxide 26 mmol/L (22-30); Chloride 94 mmol/L (98-107); Estimated CRCL calculation 45 ml/min; Estimated Glomerular Filt Rate 49; Glucose 97 mg/dL (65-110); Potassium 2.8 mmol/L (3.4-5.0); Sodium 131 mmol/L (137-145)
[2024-07-26 12:08] LABS: Magnesium 1.4 mg/dL (1.6-2.3)
[2024-07-26 12:09] LABS: CRP 11.5 mg/dL (<1.0)
[2024-07-26] MEDS: HYDROcodone/acetaminophen (*CRX) 5-325 MG TABLET 1 TAB PO ×3 (12:43→22:18)
[2024-07-26 12:51] LABS: Erythrocyte Sedimentation Rate 47 mm/hr (0-20)
[2024-07-26] MEDS: KCL 20 MEQ/SW 100 ML 100 ML 50 MEQ IVPB (13:31)
[2024-07-26] MEDS: MAGNESIUM SULF 1 GM/D5W 100 ML 1 GM/100 ML BAG IVPB (13:31)
[2024-07-26] MEDS: AMPICILLIN SULB 3 GM/NS 100 ML 3 GM/100 ML VIAL IVPB ×2 (13:32→22:04)
[2024-07-26] MEDS: POTASSIUM BICARBONATE 25 MEQ TABEF 50 MEQ PO (13:32)
[2024-07-26] MEDS: VANCOMYCIN 2,000 MG/NS 500 ML 2,000 MG/500 ML BAG 250 MG IVPB (13:42)
[2024-07-26] MEDS: SODIUM CHLORIDE 0.9% IV 500 ML 250 ML (13:43)
--- NOTE | 2024-07-26 14:54 | P.HP_ITS ---
H&P: HPI History of Present Illness Date/Time: 07/26/24 14:54 Chief Complaint: Facial rash Narrative: 64-year-old female with past medical history of depression, hypertension, GERD, anxiety and alcohol use presents the hospital with facial rash. Patient states that she started having facial irritation on Saturday which spread. She complains of nasal swelling bilateral periorbital edema. She denies vision issues. She is able open her eyes.. In the ED where lab work shows WBCs at 8.2, hemoglobin of 14.7, sodium of 131, potassium of 2.8, chloride of 94, creatinine of 1.13 which is at baseline, GFR 49, C-reactive protein 11.5, CT with a shows no abscess CT of the neck shows no abscess however does show Prominent cervical lymphadenopathy without morphologically suspicious or pathologically enlarged lymph nodes. Review of Systems Review of Systems: 12 systems were reviewed and are negativ e except for as per HPI. [facility] Past Medical History Medical History Vitamin D deficiency Mass of left breast Abnormal Pap smear of cervix (~10/2022) Thoracic spine pain Tobacco dependence Depression HTN (hypertension) GERD (gastroesophageal reflux disease) Anxiety Surgical History Surgical History History of total right knee replacement (TKR) 06/2023 History of colposcopy (~12/2022) Normal - Dr Barger History of total left knee replacement 06/20/2022 History of gynecological procedure (~1979) Cryo of cervix . per patient abnormal paps H/O right knee surgery (~2018) Right knee 2019 Family History Family History Father Cancer Mother Depression Anxiety Heart problem Thyroid disorder Cancer Sibling Cancer Social History Social History Smoking packs per day: 0.5 Smoking cigarettes per day: 10.0 Years smoked: 45 Smoking pack-years: 22.50 Smoking status: Current every day smoker Tobacco type: cigarettes Second hand tobacco smoke exposure: No Additional smoking assessment comments: Prevously SMOKING 1 PACK/WEEK; stopped 05/20/23 for surgery, then resumed Alcohol intake: current Drinks per week: 5 Alcohol use details: occasionally Substance use: former Substance use type: marijuana Do You Feel Safe in your Home?: Yes Lack of Transportation: No Lack of Food: Never True Current Housing: I Do Not Have Housing Concerned About Future Housing: No Difficulty Paying Gas/Electric Bills: No Difficulty Paying for Meds: No Currently Unemployed: No Education: Bachelor's Degree Difficulty w/ Childcare or Family Care: No Living arrangements: other Additional living arrangements comments: SIGNIFICANT OTHER Occupation/Education: occupation Gender identity (if verbalized by the patient): Female Spiritual care concerns: No Agree to blood products: Yes Meds Home Medications and Allergies Home Medications ?Medication ?Instructions ?Recorded ?Confirmed ?Type vortioxetine 10 mg tablet 10 mg PO QAM 05/27/23 07/26/24 History (Trintellix) melatonin 10 mg tablet 20 mg PO QHS 11/20/23 07/26/24 History hydroxyzine pamoate 25 mg capsule 25 mg PO BID PRN anxiety #180 caps 01/07/24 07/26/24 Rx (Vistaril) triamterene 37.5 1 tablet PO DAILY #90 tabs 01/07/24 07/26/24 Rx mg-hydrochlorothiazide 25 mg tablet omeprazole 40 mg capsule,delayed 40 mg PO QAM #90 caps 03/09/24 07/26/24 Rx release metoprolol tartrate 50 mg tablet 50 mg PO BID #180 tabs 07/22/24 07/26/24 Rx Allergies Allergy/AdvReac Type Severity Reaction Status Date / Time fentanyl AdvReac Mild Itching Verified 07/26/24 11:10 oxycodone (From Percocet) AdvReac Itching Verified 07/26/24 11:10 Vital Signs Vital Signs - 24 hr 07/26/24 10:48 07/26/24 11:09 07/26/24 13:50 Temperature 98.3 F Pulse Rate 103 H 80 Respiratory Rate 16 18 Blood Pressure 147/103 H 149/82 H Pulse Oximetry 99 99 Exam Narrative: General: well appearing, appears stated age. HEENT: Periorbital edema, nose edema and erythema. Mucous membranes moist. EOMI, PERRLA, bilateral sclera anicteric, no conjunctival injection. Neck supple without JVD, lymphadenopathy, or bruit. Respiratory: clear to ascultation bilaterally. No rales/rhonic/wheezes. Cardiovascular: Regular rate and rhythm, normal S1-S2 upon ascultation. No murmurs, rubs, or clicks. PMI is nondisplaced, capillary refill less than 3 second. Abdomen: Soft, round, no pulsatile masses, nondistended and nontender. No rebound, no guarding. No CVA tenderness, no hepatosplenomegaly. Bowel sounds present to all four quadrants. No high pitch or tinkling sounds, resonant to percussion. Extremities: No cyanosis, clubbing, or edema present. Pulses are palpable 2/2. Active ROM to all four extremities. Neuro: Alert and orientated x 4. PERRLA. Cranial nerves 2-12 intact without focal deficit. Skin: Warm, dry, and intact, without rash, erythema, or lesion. Psych: pleasant, cooperative, normal speech, normal affect, no hallucinations, no dysarthia H&P: Results Labs Labs: Short CBC 07/26/24 Range/Units 11:42 WBC 8.2 (4.5-10.0) K/mm3 Hgb 14.7 D (12.0-15.0) g/dL Hct 40.6 (37.0-47.0) % Plt Count 204 (150-375) k/mm3 BMP 07/26/24 11:41 Sodium 131 L Potassium 2.8 L* Chloride 94 L Carbon Dioxide 26 BUN 15 D Creatinine 1.13 H Glucose 97 Calcium 9.8 Assessment and Plan Assessment and plan (1) Cellulitis of face: Code(s): L03.211 - Cellulitis of face Status: Acute Assessment and Plan: No leukocytosis, elevated CRP Started on Unasyn and vancomycin IVF for hydration (2) Acute hypokalemia: Code(s): E87.6 - Hypokalemia Status: Acute Assessment and Plan: 2.8 on admission, alcohol use versus medication Replete as needed Repeat BMP at 2000 Telemetry monitoring Home hydrochlorothiazide (3) Alcohol consumption heavy: Code(s): Z78.9 - Other specified health status Status: Acute Assessment and Plan: [facility] protocol Monitor for withdrawals Banana bag, thiamine and Ativan (4) Hyponatremia: Code(s): E87.1 - Hypo-osmolality and hyponatremia Status: Acute Assessment and Plan: IVF Repeat BMP improved A.m. labs (5) Chronic kidney disease, stage 3b: Code(s): N18.32 - Chronic kidney disease, stage 3b Status: Acute Assessment and Plan: BMP in a.m. Quality VTE Prophylaxis VTE prophylaxis: mechanical ordered and pharmacologic ordered
[2024-07-26] MEDS: THIAMINE HCL INJ 100 MG, FOLIC ACID INJ 1 MG, MAGNESIUM SULFATE INJ 1 GM, MULTIVITAMINS... 125 MG IV CONT (16:05)
[2024-07-26 16:54] LABS: Alanine Aminotransferase 26 U/L (6-35); Albumin Level 4.2 g/dL (3.5-5.1); Alkaline Phosphatase 86 U/L (38-126); Anion Gap 9 mmol/L (4-12); Aspartate Amino Transferase 43 U/L (14-36); Bilirubin,Total 0.4 mg/dL (0.2-1.3); Blood Urea Nitrogen 14 mg/dL (7-17); Calcium 9.1 mg/dL (8.4-10.2); Carbon Dioxide 27 mmol/L (22-30); Chloride 95 mmol/L (98-107); Estimated CRCL calculation 49 ml/min; Estimated Glomerular Filt Rate 54; Glucose 94 mg/dL (65-110); Potassium 4.5 mmol/L (3.4-5.0); Sodium 131 mmol/L (137-145)
[2024-07-26 20:29] LABS: Anion Gap 6 mmol/L (4-12); Blood Urea Nitrogen 16 mg/dL (7-17); Calcium 8.6 mg/dL (8.4-10.2); Carbon Dioxide 27 mmol/L (22-30); Chloride 96 mmol/L (98-107); Estimated CRCL calculation 43 ml/min; Estimated Glomerular Filt Rate 47; Glucose 152 mg/dL (65-110); Phosphorus 1.3 mg/dL (2.5-4.5); Potassium 3.5 mmol/L (3.4-5.0); Sodium 129 mmol/L (137-145)
[2024-07-26] MEDS: METOPROLOL TARTRATE 50 MG TAB PO (22:03)
[2024-07-26] MEDS: PANTOPRAZOLE 40 MG TABLET PO (22:03)
[2024-07-26] MEDS: MELATONIN 5 MG TABLET 20 MG PO (22:04)
[2024-07-26] MEDS: POTASSIUM CHLORIDE 20 MEQ PACKET (FOR LIQUID) 40 MEQ PO (22:28)
[2024-07-26] MEDS: POTASSIUM/PHOSPHORUS/SODIUM 1.5 GM PACKET 1 PACKET PO (22:34)
[2024-07-27] VITALS (11 sets, daily range): BP systolic 111–130; BP diastolic 64–72; PULSE 71–85; RESP 16–18; TEMP 36.8–37.1; O2SAT 96–100
[2024-07-27] MEDS: AMPICILLIN SULB 3 GM/NS 100 ML 3 GM/100 ML VIAL IVPB ×4 (01:26→17:24)
[2024-07-27] MEDS: hydrOXYzine pamoate 25 MG CAPSULE PO (01:37)
[2024-07-27] MEDS: HYDROcodone/acetaminophen (*CRX) 5-325 MG TABLET 1 TAB PO ×2 (05:11→20:21)
[2024-07-27 05:13] LABS: Hemoglobin 12.5 g/dL (12.0-15.0); Mean Corpuscular HGB Conc 34.7 g/dl (32-36); Mean Corpuscular Hemoglobin 32.8 pg (26-34); Mean Corpuscular Volume 94.5 fl (80-100); Mean Platelet Volume 9.4 fl (7.4-10.4); Platelet Count Result 190 k/mm3 (150-375); Red Blood Count 3.81 M/mm3 (4.2-5.4); Red Cell Distribution Width 13.2 % (11.5-14.5); White Blood Count 6.1 K/mm3 (4.5-10.0)
[2024-07-27 05:25] LABS: Anion Gap 5 mmol/L (4-12); Blood Urea Nitrogen 14 mg/dL (7-17); Calcium 8.5 mg/dL (8.4-10.2); Carbon Dioxide 28 mmol/L (22-30); Chloride 99 mmol/L (98-107); Estimated CRCL calculation 45 ml/min; Estimated Glomerular Filt Rate 49; Glucose 96 mg/dL (65-110); Potassium 4.1 mmol/L (3.4-5.0); Sodium 132 mmol/L (137-145)
--- NOTE | 2024-07-27 07:35 | PM.IMPN ---
Progress Note: A&P Assessment and Plan (1) Cellulitis of face: Code(s): L03.211 - Cellulitis of face Status: Inactive Assessment and Plan: Pupils equal round reactive to light. Extraocular movement intact with no pain. Sclera clear and anicteric. No facial asymmetry. Erythema and swelling around the eyes more to the left, across the nose and now extending up into the forehead between the eyebrows with tenderness on palpation. No warmth. Denies trauma, bite, new detergent/skin creams/lotions, ect - Face CT suggesting prior right sided nasal bone fracture. Otherwise unremarkable. - Soft tissue neck CT showed prominent cervical lymphadenopathy without morphologically suspicious or pathologically enlarged lymph nodes - MR orbits/face/neck ordered given worsening swelling on exam. - Antibiotics: vancomycin and ampicillin started on 07/26 - Monitor vital signs, I&Os, neuro status and patient is a fall risk - Monitor serum electrolytes, CBC, cultures, WBC and temp curve (2) Electrolyte abnormality: Code(s): E87.8 - Other disorders of electrolyte and fluid balance, not elsewhere classified Status: Acute Assessment and Plan: Na129 and K 2.8 on admission, likely due to alcohol abuse Repleted K WNL and Na improving on am labs Monitor (3) CKD (chronic kidney disease): Code(s): N18.9 - Chronic kidney disease, unspecified Status: Acute Assessment and Plan: BUN/Cr and GFR remain at baseline. - Monitor I/O - Avoid nephrotoxic medications - Renally dose medications (4) HTN (hypertension): Qualifiers: Hypertension type: primary hypertension Qualified Code(s): I10 - Essential (primary) hypertension Code(s): I10 - Essential (primary) hypertension Status: Acute Assessment and Plan: Chronic, continue home medications - metoprolol 50 mg BID - blood pressures well controlled, continue to monitor (5) Alcohol abuse: Code(s): F10.10 - Alcohol abuse, uncomplicated Status: Acute Assessment and Plan: 4-5 drinks daily. Denies prior withdrawal symptoms. - Continue CIWA protocol - Started on thiamine, folic acid and multivitamin Time Spent With Patient Time with patient: 25 - 35 minutes Subjective Date/time seen: 07/27/24 07:35 Interval history: 64 year old female with past medical history of hypertension, GERD, anxiety/depression and daily alcohol use presents to the hospital for facial swelling/rash. Patient is pleasant lying comfortably in bed. She states that this swelling is now extending into her forehead region between her eyebrows with noted tenderness. She states she feels as though the redness has improved slightly. She also endorses pressure around her eyes but denies any pain with ocular movement and notes that her blurred vision is at baseline. She has no other complaints denies chest pain, palpitations, shortness a breath, nausea/vomiting, abdominal pain. Review of Systems Review of Systems: All systems reviewed & are unremarkable except as noted in HPI and below Exam Narrative: AF HR 85 RR 16 SpO2 97 BP 111/64 General: female in no acute respiratory distress who is nontoxic appearing, lying semi recumbent in bed. HEENT: Normocephalic. Atraumatic. Pupils equal round reactive to light. Extraocular movement intact with no pain. Sclera clear and anicteric. No facial asymmetry. Erythema and swelling around the eyes more to the left, across the nose and now extending up into the forehead between the eyebrows with tenderness on palpation. No warmth. Chest: Lungs are clear to auscultation bilaterally. No wheezes or crackles. CV: Heart was regular rate and rhythm. S1-S2. No murmurs, gallops, or rubs. Abd: Abdomen was soft. Nontender. Nondistended. Positive bowel sounds. Ext: No clubbing, cyanosis, or edema. DP pulses bilaterally. Neuro: Patient is alert. Speech is clear. Objective Data Vital Signs Vital Signs: Vital Signs - 24 hr 07/26/24 10:48 07/26/24 11:09 07/26/24 13:50 Temperature 98.3 F Pulse Rate 103 H 80 Respiratory Rate 16 18 Blood Pressure 147/103 H 149/82 H Pulse Oximetry 99 99 Oxygen Delivery Fraction of Inspired Oxygen 07/26/24 16:13 07/26/24 20:00 07/26/24 20:00 Temperature Pulse Rate 78 78 Respiratory Rate 18 18 Blood Pressure 148/96 H 148/96 H Pulse Oximetry 100 100 Oxygen Delivery Room Air Fraction of Inspired Oxygen 07/26/24 20:00 07/26/24 20:25 07/26/24 21:21 Temperature 98.9 F Pulse Rate 88 89 88 Respiratory Rate 16 20 Blood Pressure 130/70 Pulse Oximetry 98 96 Oxygen Delivery Room Air Fraction of Inspired Oxygen 07/26/24 22:03 07/27/24 00:00 07/27/24 00:00 Temperature Pulse Rate 88 71 Respiratory Rate Blood Pressure 130/70 Pulse Oximetry Oxygen Delivery Fraction of Inspired Oxygen 07/27/24 04:00 Temperature Pulse Rate 74 Respiratory Rate Blood Pressure Pulse Oximetry Oxygen Delivery Fraction of Inspired Oxygen Intake/Output Intake/Output: Intake & Output 07/24/24 07/25/24 07/26/24 07/27/24 23:59 23:59 23:59 23:59 Intake Total 1790 200 Balance 1790 200 Meds/Results Medications: Active Medications Generic Name Dose Route Start Last Admin Trade Name Freq PRN Reason Stop Dose Admin Acetaminophen 650 mg 07/26/24 14:14 Acetaminophen 325 Mg Tablet PO Q4H PRN Mild Pain (1-3) or Fever Hydrocodone Bitart/Acetaminophen 1 tab 07/26/24 14:14 07/27/24 05:11 Hydrocodone/Acetaminophen (*Crx) 5-325 Mg Tablet PO 1 tab Q4H PRN Administration Pain Rated 4-6 Docusate Sodium 100 mg 07/26/24 17:00 07/26/24 17:59 Docusate Sodium 100 Mg Capsule PO Not Given BID [facility] Enoxaparin Sodium 40 mg 07/27/24 09:00 Enoxaparin 40 Mg/0.4 Ml Syringe SUB-Q DAILY [facility] Hydroxyzine Pamoate 25 mg 07/26/24 18:28 07/27/24 01:37 Hydroxyzine Pamoate 25 Mg Capsule PO 25 mg BID PRN Administration anxiety Vancomycin HCl 1,250 mg in 250 mls @ 166.667 mls/hr 07/27/24 13:00 Vancomycin 1,250 Mg/Ns 250 Ml IVPB Q24H [facility] Ampicillin Sodium/Sulbactam Sodium 3 gm in 100 mls @ 200 mls/hr 07/26/24 20:00 07/27/24 05:45 Unasyn 3 Gm/Ns 100 Ml IVPB Infused Q6HR [facility] Infusion Lorazepam 2 mg 07/26/24 15:16 Lorazepam Inj (*Crx) 2 Mg/Ml Vial IV PUSH Q4H PRN CIWA 8-15 Melatonin 20 mg 07/26/24 21:00 07/26/24 22:04 Melatonin 5 Mg Tablet PO 20 mg QHS [facility] Administration Metoprolol Tartrate 50 mg 07/26/24 21:00 07/26/24 22:03 Metoprolol Tartrate 50 Mg Tab PO 50 mg Q12HR [facility] Administration Ondansetron HCl 4 mg 07/26/24 14:14 Ondansetron Inj 4 Mg/2 Ml Vial IV PUSH Q4H PRN Nausea Pantoprazole Sodium 40 mg 07/26/24 21:00 07/26/24 22:03 Pantoprazole 40 Mg Tablet PO 40 mg Q12HR [facility] Administration Thiamine HCl 100 mg 07/27/24 09:00 Thiamine Hcl 200 Mg/2 Ml Vial IV PUSH DAILY [facility] Radiology Results: ITS Impressions Soft Tissue Neck CT 07/26/24 13:13 IMPRESSION: 1. Prominent cervical lymphadenopathy without morphologically suspicious or pathologically enlarged lymph nodes. Face CT 07/26/24 13:20 IMPRESSION: Findings suggesting prior right-sided nasal bone fracture. Otherwise, unremarkable CT examination of the facial bones, as detailed above. Labs Labs: Laboratory Results - last 24 hr 07/26/24 07/26/24 07/26/24 11:41 11:42 16:41 WBC 8.2 RBC 4.46 Hgb 14.7 D Hct 40.6 MCV 91.0 MCH 33.0 MCHC 36.2 H RDW 12.5 Plt Count 204 MPV 9.5 Immature Gran % (Auto) 0.4 Neut % (Auto) 58.0 Lymph % (Auto) 29.7 Tate % (Auto) 11.3 H Eos % (Auto) 0.2 Baso % (Auto) 0.4 Lymph # (Auto) 2.42 Tate # (Auto) 0.9 H Eos # (Auto) 0.0 Baso # (Auto) 0.0 Abs Immat Gran (auto) 0.03 Absolute Neuts (auto) 4.7 Absolute Nucleated RBC 0.000 Nucleated RBC % 0.0 ESR 47 H Sodium 131 L 131 L Potassium 2.8 L* 4.5 Chloride 94 L 95 L Carbon Dioxide 26 27 Anion Gap 11 9 BUN 15 D 14 Creatinine 1.13 H 1.03 H Estim Creat Clear Calc 45 49 Estimated GFR 49 L 54 L Glucose 97 94 Calcium 9.8 9.1 Phosphorus Magnesium 1.4 L Total Bilirubin 0.4 AST 43 H ALT 26 Alkaline Phosphatase 86 C-Reactive Protein 11.5 H Total Protein 8.0 Albumin 4.2 07/26/24 07/27/24 20:08 04:22 WBC 6.1 RBC 3.81 L Hgb 12.5 Hct 36.0 L MCV 94.5 MCH 32.8 MCHC 34.7 RDW 13.2 Plt Count 190 MPV 9.4 Immature Gran % (Auto) Neut % (Auto) Lymph % (Auto) Tate % (Auto) Eos % (Auto) Baso % (Auto) Lymph # (Auto) Tate # (Auto) Eos # (Auto) Baso # (Auto) Abs Immat Gran (auto) Absolute Neuts (auto) Absolute Nucleated RBC Nucleated RBC % ESR Sodium 129 L 132 L Potassium 3.5 4.1 Chloride 96 L 99 Carbon Dioxide 27 28 Anion Gap 6 5 BUN 16 14 Creatinine 1.17 H 1.12 H Estim Creat Clear Calc 43 45 Estimated GFR 47 L 49 L Glucose 152 H 96 Calcium 8.6 8.5 Phosphorus 1.3 L Magnesium 2.0 Total Bilirubin AST ALT Alkaline Phosphatase C-Reactive Protein Total Protein Albumin Quality VTE Prophylaxis VTE prophylaxis: pharmacologic ordered
[2024-07-27] MEDS: METOPROLOL TARTRATE 50 MG TAB PO ×2 (08:15→20:23)
[2024-07-27] MEDS: DOCUSATE SODIUM 100 MG CAPSULE PO ×2 (08:15→17:24)
[2024-07-27] MEDS: PANTOPRAZOLE 40 MG TABLET PO ×2 (08:15→20:23)
[2024-07-27] MEDS: THIAMINE HCL 200 MG/2 ML VIAL 100 MG IV PUSH (08:15)
[2024-07-27] MEDS: ENOXAPARIN 40 MG/0.4 ML SYRINGE SUB-Q (08:16)
[2024-07-27] MEDS: MULTIVITAMINS THERAPEUTIC TAB (*BKC) 1 TABLET PO (08:18)
[2024-07-27] MEDS: FOLIC ACID 0.4 MG TABLET PO (08:18)
[2024-07-27] MEDS: ACETAMINOPHEN 325 MG TABLET 650 MG PO (13:31)
[2024-07-27] MEDS: VANCOMYCIN 1,250 MG/NS 250 ML 1,250 MG/250 ML BAG 166.67 MG IVPB (13:32)
[2024-07-27] MEDS: MELATONIN 5 MG TABLET 20 MG PO (20:22)
[2024-07-28] VITALS (9 sets, daily range): BP systolic 127–139; BP diastolic 73–88; PULSE 65–75; RESP 16–18; TEMP 36.4; O2SAT 97–100
[2024-07-28] MEDS: AMPICILLIN SULB 3 GM/NS 100 ML 3 GM/100 ML VIAL IVPB ×5 (00:27→23:10)
[2024-07-28] MEDS: hydrOXYzine pamoate 25 MG CAPSULE PO (00:32)
[2024-07-28 05:41] LABS: Estimated CRCL calculation 53 ml/min; Estimated Glomerular Filt Rate 60
[2024-07-28 07:50] LABS: Hematocrit 34.9 % (37.0-47.0); Hemoglobin 11.5 g/dL (12.0-15.0); Mean Corpuscular Hemoglobin 32.5 pg (26-34); Mean Corpuscular Volume 98.6 fl (80-100); Mean Platelet Volume 9.9 fl (7.4-10.4); Platelet Count Result 196 k/mm3 (150-375); Red Blood Count 3.54 M/mm3 (4.2-5.4); Red Cell Distribution Width 13.2 % (11.5-14.5); White Blood Count 5.3 K/mm3 (4.5-10.0)
--- NOTE | 2024-07-28 07:54 | PM.IMPN ---
Progress Note: A&P Assessment and Plan (1) Cellulitis of face: Code(s): L03.211 - Cellulitis of face Status: Inactive Assessment and Plan: Pupils equal round reactive to light. Extraocular movement intact with no pain. Sclera clear and anicteric. No facial asymmetry. Erythema and swelling around the eyes more to the left, across the nose and now extending up into the forehead between the eyebrows with tenderness on palpation. No warmth. Denies trauma, bite, new detergent/skin creams/lotions, ect - Face CT suggesting prior right sided nasal bone fracture. Otherwise unremarkable. - Soft tissue neck CT showed prominent cervical lymphadenopathy without morphologically suspicious or pathologically enlarged lymph nodes - MR orbits/face/neck ordered given worsening swelling on exam. Subcutaneous edema and non masslike enhancement in the subcutaneous tissues at the bilateral malar regions extending into the inferior preseptal soft soft tissues and across bridge of the nose consistent with nonspecific cellulitis without abscess. Orbits are otherwise normal with no post septal inflammatory stranding. 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 No acute intracranial process. - Antibiotics: vancomycin and ampicillin started on 07/26 - Monitor vital signs, I&Os, neuro status and patient is a fall risk - Monitor serum electrolytes, CBC, cultures, WBC and temp curve Slight improvement. (2) Electrolyte abnormality: Code(s): E87.8 - Other disorders of electrolyte and fluid balance, not elsewhere classified Status: Acute Assessment and Plan: Na129 and K 2.8 on admission, likely due to alcohol abuse vs medication (triamterene-hctz) Repleted K WNL and Na improving on am labs Triamterene-HCTZ on hold Monitor (3) CKD (chronic kidney disease): Code(s): N18.9 - Chronic kidney disease, unspecified Status: Acute Assessment and Plan: BUN/Cr and GFR remain at baseline. - Monitor I/O - Avoid nephrotoxic medications - Renally dose medications (4) HTN (hypertension): Qualifiers: Hypertension type: primary hypertension Qualified Code(s): I10 - Essential (primary) hypertension Code(s): I10 - Essential (primary) hypertension Status: Acute Assessment and Plan: Chronic, continue home medications - metoprolol 50 mg BID - blood pressures well controlled, continue to monitor (5) Alcohol abuse: Code(s): F10.10 - Alcohol abuse, uncomplicated Status: Acute Assessment and Plan: 4-5 drinks daily. Denies prior withdrawal symptoms. - CIWA protocol, scores 0-2 thus far. No ativan required. - Started on thiamine, folic acid and multivitamin Time Spent With Patient Time with patient: 25 - 35 minutes Subjective Date/time seen: 07/28/24 07:54 Interval history: 64 year old female with past medical history of hypertension, GERD, anxiety/depression and daily alcohol use presents to the hospital for facial swelling/rash. Patient is pleasant sitting up comfortably in bed. She continues to endorse tenderness around her eyes but denies any pain with ocular movement or decreased vision. She endorses itching to the face. Improved with Benadryl. She has no other complaints denies chest pain, shortness a breath, palpitations, nausea/vomiting, abdominal pain. Review of Systems Review of Systems: All systems reviewed & are unremarkable except as noted in HPI and below Exam Narrative: AF HR 71 RR 16 SPo2 99 BP 137/88 General: female in no acute respiratory distress who is nontoxic appearing, lying semi recumbent in bed. HEENT: Normocephalic. Atraumatic. Pupils equal round reactive to light. Extraocular movement intact with no pain. Sclera clear and anicteric. No facial asymmetry. Slight improvement to the erythema and swelling around the eyes more to the left and under the eyes, extending up into the forehead between the eyebrows with tenderness on palpation. Improved swelling to the nose. No warmth. Chest: Lungs are clear to auscultation bilaterally. No wheezes or crackles. CV: Heart was regular rate and rhythm. S1-S2. No murmurs, gallops, or rubs. Abd: Abdomen was soft. Nontender. Nondistended. Positive bowel sounds. Ext: No clubbing, cyanosis, or edema. DP pulses bilaterally. Neuro: Patient is alert. Speech is clear. Objective Data Vital Signs Vital Signs: Vital Signs - 24 hr 07/27/24 08:00 07/27/24 08:15 07/27/24 08:15 Temperature Pulse Rate 73 74 Respiratory Rate Blood Pressure Pulse Oximetry Oxygen Delivery Room Air 07/27/24 12:00 07/27/24 14:20 07/27/24 16:00 Temperature 98.2 F Pulse Rate 74 78 76 Respiratory Rate 18 Blood Pressure 123/72 Pulse Oximetry 96 Oxygen Delivery 07/27/24 20:00 07/27/24 20:23 07/27/24 22:00 Temperature 98.7 F Pulse Rate 75 74 75 Respiratory Rate 18 Blood Pressure 130/70 Pulse Oximetry 100 Oxygen Delivery 07/28/24 00:00 07/28/24 04:00 07/28/24 06:00 Temperature Pulse Rate 66 71 65 Respiratory Rate 16 Blood Pressure 137/88 Pulse Oximetry 99 Oxygen Delivery Intake/Output Intake/Output: Intake & Output 07/25/24 07/26/24 07/27/24 07/28/24 23:59 23:59 23:59 23:59 Intake Total 1790 1680 450 Balance 1790 1680 450 Meds/Results Medications: Active Medications Generic Name Dose Route Start Last Admin Trade Name Freq PRN Reason Stop Dose Admin Acetaminophen 650 mg 07/26/24 14:14 07/27/24 13:31 Acetaminophen 325 Mg Tablet PO 650 mg Q4H PRN Administration Mild Pain (1-3) or Fever Hydrocodone Bitart/Acetaminophen 1 tab 07/26/24 14:14 07/27/24 20:21 Hydrocodone/Acetaminophen (*Crx) 5-325 Mg Tablet PO 1 tab Q4H PRN Administration Pain Rated 4-6 Diphenhydramine HCl 25 mg 07/28/24 07:52 Diphenhydramine Hcl Cap 25 Mg Capsule PO Q6H PRN Itching Docusate Sodium 100 mg 07/26/24 17:00 07/27/24 17:24 Docusate Sodium 100 Mg Capsule PO 100 mg BID [facility] Administration Enoxaparin Sodium 40 mg 07/27/24 09:00 07/27/24 08:16 Enoxaparin 40 Mg/0.4 Ml Syringe SUB-Q 40 mg DAILY [facility] Administration Folic Acid 0.4 mg 07/27/24 09:00 07/27/24 08:18 Folic Acid 0.4 Mg Tablet PO 0.4 mg DAILY [facility] Administration Hydroxyzine Pamoate 25 mg 07/26/24 18:28 07/28/24 00:32 Hydroxyzine Pamoate 25 Mg Capsule PO 25 mg BID PRN Administration anxiety Vancomycin HCl 1,250 mg in 250 mls @ 166.667 mls/hr 07/27/24 13:00 07/27/24 15:02 Vancomycin 1,250 Mg/Ns 250 Ml IVPB Infused Q24H [facility] Infusion Ampicillin Sodium/Sulbactam Sodium 3 gm in 100 mls @ 200 mls/hr 07/26/24 20:00 07/28/24 05:55 Unasyn 3 Gm/Ns 100 Ml IVPB Infused Q6HR [facility] Infusion Lorazepam 2 mg 07/26/24 15:16 Lorazepam Inj (*Crx) 2 Mg/Ml Vial IV PUSH Q4H PRN CIWA 8-15 Melatonin 20 mg 07/26/24 21:00 07/27/24 20:22 Melatonin 5 Mg Tablet PO 20 mg QHS [facility] Administration Metoprolol Tartrate 50 mg 07/26/24 21:00 07/27/24 20:23 Metoprolol Tartrate 50 Mg Tab PO 50 mg Q12HR [facility] Administration Multivitamins Therapeutic 1 tablet 07/27/24 09:00 07/27/24 08:18 Multivitamins Therapeutic Tab (*Bkc) PO 1 tablet QAM [facility] Administration Ondansetron HCl 4 mg 07/26/24 14:14 Ondansetron Inj 4 Mg/2 Ml Vial IV PUSH Q4H PRN Nausea Pantoprazole Sodium 40 mg 07/26/24 21:00 07/27/24 20:23 Pantoprazole 40 Mg Tablet PO 40 mg Q12HR [facility] Administration Thiamine HCl 100 mg 07/27/24 09:00 07/27/24 08:15 Thiamine Hcl 200 Mg/2 Ml Vial IV PUSH 100 mg DAILY [facility]I Administration Radiology Results: ITS Impressions Soft Tissue Neck CT 07/26/24 13:13 IMPRESSION: 1. Prominent cervical lymphadenopathy without morphologically suspicious or pathologically enlarged lymph nodes. Face CT 07/26/24 13:20 IMPRESSION: Findings suggesting prior right-sided nasal bone fracture. Otherwise, unremarkable CT examination of the facial bones, as detailed above. Labs Labs: Laboratory Results - last 24 hr 07/28/24 04:35 WBC 5.3 RBC 3.54 L Hgb 11.5 L Hct 34.9 L MCV 98.6 MCH 32.5 MCHC 33.0 RDW 13.2 Plt Count 196 MPV 9.9 Creatinine 0.94 Estim Creat Clear Calc 53 Estimated GFR 60 Quality VTE Prophylaxis VTE prophylaxis: pharmacologic ordered
[2024-07-28 08:00] LABS: Alanine Aminotransferase 16 U/L (6-35); Albumin Level 3.2 g/dL (3.5-5.1); Alkaline Phosphatase 66 U/L (38-126); Anion Gap 7 mmol/L (4-12); Aspartate Amino Transferase 26 U/L (14-36); Bilirubin,Total 0.3 mg/dL (0.2-1.3); Blood Urea Nitrogen 11 mg/dL (7-17); Calcium 8.9 mg/dL (8.4-10.2); Carbon Dioxide 23 mmol/L (22-30); Chloride 105 mmol/L (98-107); Estimated CRCL calculation 51 ml/min; Estimated Glomerular Filt Rate 58; Glucose 94 mg/dL (65-110); Potassium 3.9 mmol/L (3.4-5.0); Sodium 135 mmol/L (137-145)
[2024-07-28] MEDS: PANTOPRAZOLE 40 MG TABLET PO ×2 (08:15→20:11)
[2024-07-28] MEDS: diphenhydrAMINE HCl CAP 25 MG CAPSULE PO ×3 (08:15→20:16)
[2024-07-28] MEDS: FOLIC ACID 0.4 MG TABLET PO (08:15)
[2024-07-28] MEDS: METOPROLOL TARTRATE 50 MG TAB PO ×2 (08:15→20:11)
[2024-07-28] MEDS: MULTIVITAMINS THERAPEUTIC TAB (*BKC) 1 TABLET PO (08:15)
[2024-07-28] MEDS: THIAMINE HCL 200 MG/2 ML VIAL 100 MG IV PUSH (08:15)
[2024-07-28 12:24] LABS: Vancomycin Trough 9.8 ug/mL (10.0-20.0)
[2024-07-28] MEDS: VANCOMYCIN 1,500 MG/NS 500 ML 1,500 MG/500 ML BAG 250 MG IVPB (14:02)
[2024-07-28] MEDS: MELATONIN 5 MG TABLET 20 MG PO (20:11)
[2024-07-28] MEDS: HYDROcodone/acetaminophen (*CRX) 5-325 MG TABLET 1 TAB PO (20:16)
[2024-07-29 05:00] LABS: Hematocrit 35.8 % (37.0-47.0); Hemoglobin 11.5 g/dL (12.0-15.0); Mean Corpuscular HGB Conc 32.1 g/dl (32-36); Mean Corpuscular Hemoglobin 32.1 pg (26-34); Mean Platelet Volume 9.7 fl (7.4-10.4); Platelet Count Result 198 k/mm3 (150-375); Red Blood Count 3.58 M/mm3 (4.2-5.4); Red Cell Distribution Width 13.3 % (11.5-14.5); White Blood Count 6.1 K/mm3 (4.5-10.0)
[2024-07-29] MEDS: AMPICILLIN SULB 3 GM/NS 100 ML 3 GM/100 ML VIAL IVPB (05:10)
[2024-07-29] MEDS: diphenhydrAMINE HCl CAP 25 MG CAPSULE PO (05:11)
[2024-07-29 05:14] LABS: Alanine Aminotransferase 15 U/L (6-35); Albumin Level 3.3 g/dL (3.5-5.1); Alkaline Phosphatase 71 U/L (38-126); Anion Gap 3 mmol/L (4-12); Aspartate Amino Transferase 26 U/L (14-36); Bilirubin,Total 0.2 mg/dL (0.2-1.3); Blood Urea Nitrogen 14 mg/dL (7-17); Calcium 9.3 mg/dL (8.4-10.2); Carbon Dioxide 27 mmol/L (22-30); Chloride 106 mmol/L (98-107); Estimated CRCL calculation 45 ml/min; Estimated Glomerular Filt Rate 49; Glucose 104 mg/dL (65-110); Potassium 3.9 mmol/L (3.4-5.0); Sodium 136 mmol/L (137-145)
[2024-07-29 06:00] VITALS: BP 159/84; PULSE 69; RESP 18; TEMP 36.6; O2SAT 99
[2024-07-29 08:05] VITALS: PULSE 69
[2024-07-29] MEDS: VANCOMYCIN 1,500 MG/NS 500 ML 1,500 MG/500 ML BAG 250 MG IVPB (08:05)
[2024-07-29] MEDS: FOLIC ACID 0.4 MG TABLET PO (08:05)
[2024-07-29] MEDS: METOPROLOL TARTRATE 50 MG TAB PO (08:05)
[2024-07-29] MEDS: PANTOPRAZOLE 40 MG TABLET PO (08:06)
[2024-07-29] MEDS: MULTIVITAMINS THERAPEUTIC TAB (*BKC) 1 TABLET PO (08:06)
[2024-07-29] MEDS: hydrOXYzine pamoate 25 MG CAPSULE PO (08:09)
[2024-07-29] MEDS: AMOXICILLIN/CLAVULANATE K 875-125 MG TAB 1 TABLET PO (12:01)
--- NOTE | 2024-07-29 14:06 | P.DS_ITS ---
DS: Admitting Diagnosis Discharge Date 07/29 Admitting Diagnosis cellulitis DS: Discharge Diagnosis Discharge Diagnosis (1) Cellulitis of face: Code(s): L03.211 - Cellulitis of face Status: Inactive (2) Electrolyte abnormality: Code(s): E87.8 - Other disorders of electrolyte and fluid balance, not elsewhere classified Status: Acute (3) CKD (chronic kidney disease): Code(s): N18.9 - Chronic kidney disease, unspecified Status: Acute (4) HTN (hypertension): Qualifiers: Hypertension type: primary hypertension Qualified Code(s): I10 - Essential (primary) hypertension Code(s): I10 - Essential (primary) hypertension Status: Acute (5) Alcohol abuse: Code(s): F10.10 - Alcohol abuse, uncomplicated Status: Acute DS: Summary Hospital Course Hospital Course: 64 year old female with past medical history of hypertension, GERD, anxiety/depression and daily alcohol use presents to the hospital for facial swelling/rash. Several issues were addressed: # cellulitis Pupils equal round reactive to light. Extraocular movement intact with no pain. Sclera clear and anicteric. No facial asymmetry. Erythema and swelling around the eyes more to the left, across the nose and now extending up into the forehead between the eyebrows with tenderness on palpation. No warmth. Denies trauma, bite, new detergent/skin creams/lotions, ect - Face CT suggesting prior right sided nasal bone fracture. Otherwise unrema rkable. - Soft tissue neck CT showed prominent cervical lymphadenopathy without morphologically suspicious or pathologically enlarged lymph nodes - MR orbits/face/neck ordered given worsening swelling on exam. Subcutaneous edema and non masslike enhancement in the subcutaneous tissues at the bilateral malar regions extending into the inferior preseptal soft soft tissues and across bridge of the nose consistent with nonspecific cellulitis without abscess. Orbits are otherwise normal with no post septal inflammatory stranding. 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 No acute int racranial process. - Antibiotics: vancomycin and ampicillin started on 07/26-downgraded to augmentin and linezoid- rx sent - Monitor vital signs, I&Os, neuro status and patient is a fall risk - Monitor serum electrolytes, CBC, cultures, WBC and temp curve Improving- wants to go home today and will have a close f/u with her PCP. # electrolyte imbalance Na129 and K 2.8 on admission, likely due to alcohol abuse vs medication (triamterene-hctz) Repleted K WNL and Na improving on am labs Triamterene-HCTZ was on hold due to CKD-but numbers imprioved- so ok to restart but need a close f/u with repeat bmp # CKD BUN/Cr and GFR remain at baseline. will repeat BMP within a week after discharge # alcohol abuse 4-5 drinks daily. Denies prior withdrawal symptoms. - CIWA protocol, scores 0-2 thus far. No ativan required. - Started on thiamine, folic acid and multivitamin -discussed -no alcohol while on antibiotics -discussed alcohol decreasing and stopping Status at Discharge Functional status at discharge: independent ambulation Overall status at discharge: patient is progressing back to baseline Time Spent with Patient Time attestation: Total time spent providing and/or coordinating discharge services: Time spent: Greater than 30 minutes Exam Narrative: General: female in no acute respiratory distress who is nontoxic appearing, lying semi recumbent in bed. HEENT: Normocephalic. Atraumatic. Pupils equal round reactive to light. Extraocular movement intact with no pain. Sclera clear and anicteric. No facial asymmetry. Slight improvement to the erythema and swelling around the eyes more to the left and under the eyes, extending up into the forehead between the eyebrows with tenderness on palpation. Improved swelling to the nose. No warmth. Chest: Lungs are clear to auscultation bilaterally. No wheezes or crackles. CV: Heart was regular rate and rhythm. S1-S2. No murmurs, gallops, or rubs. Abd: Abdomen was soft. Nontender. Nondistended. Positive bowel sounds. Ext: No clubbing, cyanosis, or edema. DP pulses bilaterally. Neuro: Patient is alert. Speech is clear. Const: General: comfortable DS: Data Data Completed and Pending Labs on day of discharge: Labs from last 24 hours 07/29/24 04:27 WBC 6.1 RBC 3.58 L Hgb 11.5 L Hct 35.8 L MCV 100.0 MCH 32.1 MCHC 32.1 RDW 13.3 Plt Count 198 MPV 9.7 Sodium 136 L Potassium 3.9 Chloride 106 Carbon Dioxide 27 Anion Gap 3 L BUN 14 Creatinine 1.13 H Estim Creat Clear Calc 45 Estimated GFR 49 L Glucose 104 Calcium 9.3 Total Bilirubin 0.2 AST 26 ALT 15 Alkaline Phosphatase 71 Total Protein 6.0 L Albumin 3.3 L Preliminary micro results at discharge 07/26/24 13:36 Blood Culture - Preliminary Blood 07/26/24 13:36 Blood Culture - Preliminary Blood Discharge Plan Discharge Attending physician on discharge: Bry Arango Discharging Clinician: Nerissa Cuba Patient Disposition: Home Activity: may shower Diet: heart healthy Discharge Instructions: Please take antibiotics as prescribed. Take probiotics daily to prevent diarrhea (common station mechanic helper effect from antibiotics). Use vaseline for dry skin. If redness doensot improve or get worse, swelling return or you develop any new symptoms, please return to ed. Patient Instructions: Antibiotic Form, Pain Management in Older Adults (GEN), Pain Management (GEN), Non-pharmacological Pain Management Therapies for Adults (GEN) Patient Language: Irish Stand Alone Forms: General Discharge Information Follow-up/Referrals: Shawna Rodriguez, [employer] [Primary Care Provider] - 2 Weeks Discharge Medications: New linezolid 600 mg Tablet 600 mg PO Q12HR Qty: 13 0RF amoxicillin-pot clavulanate 875-125 mg tablet 1 tablet PO Q12H Qty: 13 0RF Continued melatonin 10 mg tablet 20 mg PO QHS Trintellix 10 mg tablet 10 mg PO QAM Patient Comments: QAM triamterene-hydrochlorothiazid 37.5-25 mg tablet 1 tablet PO DAILY Qty: 90 1RF hydroxyzine pamoate [Vistaril] 25 mg capsule 25 mg PO BID PRN (Reason: anxiety) Qty: 180 1RF omeprazole 40 mg capsule,delayed release(DR/EC) 40 mg PO QAM Qty: 90 1RF metoprolol tartrate 50 mg tablet 50 mg PO BID Qty: 180 1RF Other Ambulatory Orders: Basic Metabolic Panel (Routine) Timeframe: 1 Week Location: Determined by Patient Ordered By: Nerissa Cuba Date of admission: 07/27/24 10:12 Primary Care Provider: Shawna Rodriguez Admitting Provider: Delfino Gould Attending physician on admission: Eileen Begum Condition: Stable Quality VTE Prophylaxis VTE prophylaxis: pharmacologic ordered
== END 2024-07-29 14:25 | disposition home or self-care (01) | DRG 603 ==
LOC: ANHED 12:28 → ANH3MEDSUR 15:31 → ANH2MED 15:58
PROVIDERS: Nurse Practitioner Gerontology; Student in an Organized Health Care Education/Training Program; Admitting Provider Internal Medicine; Emergency Provider Student in an Organized Health Care Education/Training Program; PCP Nurse Practitioner Family; Visit Provider Nurse Practitioner
DX: L03.211 Cellulitis of face (principal); E87.1 Hypo-osmolality and hyponatremia; L03.213 Periorbital cellulitis; I12.9 Hypertensive chronic kidney disease with stage 1 through stage 4 chronic kidney disease, or unspecified chronic kidney disease; N18.32 Chronic kidney disease, stage 3b; E87.6 Hypokalemia; K21.9 Gastro-esophageal reflux disease without esophagitis; E55.9 Vitamin D deficiency, unspecified; F10.10 Alcohol abuse, uncomplicated; F17.210 Nicotine dependence, cigarettes, uncomplicated; F32.A Depression, unspecified; F41.9 Anxiety disorder, unspecified; Z96.653 Presence of artificial knee joint, bilateral
CPT/HCPCS: 36415; 70487; 70491; 70543; 80048; 80053; 80202; 82565; 83735; 84100; 85025; 85027; 85652; 86140; 87040; 96365; 96366; 96367; 96368; 96375; 99285; A9270; A9579; G0378; J0295; J1650; J3370; J3411; J3475; J3480; J7030; J7040; Q9967

== ENCOUNTER 2025-02-16 14:02 | Emergency (ER) | payer BC, SELFPAY ==
--- NOTE | 2025-02-16 14:03 | ED.EYEPROB ---
HPI - Eye Problem General Chief complaint: Eye Problems Stated complaint: irritation in both eyes Time Seen by Provider: 02/16/25 14:03 Source: patient Mode of arrival: ambulatory Limitations: no limitations History of Present Illness HPI Narrative: Otilia is a 65 year old female patient presenting to the clinic today with c/o bilateral eye irritation. She reports she has had redness and swelling to the left upper and lower eyelid for 3 weeks and redness and swelling to the right upper eyelid x1 week. Has been trying some brxk-yos-kxrtgxh stye relief drops without relief. Areas are painful to touch. Has been using warm compresses. Denies any visual changes or eye injury. Related Data Home Medications ?Medication ?Instructions ?Recorded ?Confirmed ?Last Taken ?Type vortioxetine 10 mg tablet 10 mg PO QAM 05/27/23 12/29/24 07/25/24 History (Trintellix) melatonin 10 mg tablet 20 mg PO QHS 11/20/23 12/29/24 07/25/24 History biotin 10,000 mcg chewable tablet mcg PO 12/29/24 12/29/24 Unknown History (Hair, Skin and Nails (biotin)) Allergies Allergy/AdvReac Type Severity Reaction Status Date / Time fentanyl AdvReac Mild Itching Verified 02/16/25 14:06 oxycodone (From Percocet) AdvReac Itching Verified 02/16/25 14:06 Review of Systems Review of Systems: Pertinent positives per HPI. Patient denies any fever, chills, rash, headache, visual changes, dizziness, cough, runny nose, sore throat, shortness of breath, chest pain, palpitations, nausea, vomiting, diarrhea, constipation, abdominal pain, or any urinary issues. [facility] Past Medical History Medical History Vitamin D deficiency Mass of left breast Abnormal Pap smear of cervix (~10/2022) Thoracic spine pain Tobacco dependence Depression HTN (hypertension) GERD (gastroesophageal reflux disease) Anxiety Surgical History Surgical History History of total right knee replacement (TKR) 06/2023 History of colposcopy (~12/2022) [facility] - Dr Barger History of total left knee replacement 06/20/2022 History of gynecological procedure (~1979) Cryo of cervix 1980s. per patient abnormal paps H/O right knee surgery (~2018) Right knee 2019 Family History Family History Father Cancer Mother Depression Anxiety Heart problem Thyroid disorder Cancer Sibling Cancer Social History Social History Smoking packs per day: 0.25 Smoking cigarettes per day: 5.0 Years smoked: 2 Smoking pack-years: 0.50 Smoking status: Current every day smoker Tobacco type: cigarettes Second hand tobacco smoke exposure: No Additional smoking assessment comments: Prevously SMOKING 1 PACK/WEEK; stopped 05/20/23 for surgery, then resumed Alcohol intake: current Drinks per week: 5 Alcohol use details: occasionally Substance use: former Substance use type: marijuana Lack of Transportation: No Lack of Food: Never True Current Housing: I Do Not Have Housing Concerned About Future Housing: No Difficulty Paying Gas/Electric Bills: No Difficulty Paying for Meds: No Currently Unemployed: No Education: Bachelor's Degree Difficulty w/ Childcare or Family Care: No Living arrangements: other Additional living arrangements comments: SIGNIFICANT OTHER Occupation/Education: occupation Gender identity (if verbalized by the patient): Female Spiritual care concerns: No Agree to blood products: Yes Comments At the time of my signature, I reviewed and agree with the nursing past medical, surgical, social, and family history. There is no relevant family history pertinent to the patient complaint. Exam Narrative: General: Well-developed, well nourished, in no apparent distress Head: Normocephalic, atraumatic Eyes: Pupils equally round and reactive to light bilaterally, EOM intact, sclera and conjunctive clear, no discharge, left upper and lower lid with internal styes laterally and right upper eyelid with internal stye medially, localized redness and swelling, tender to palpation, no obvious drainage Ears: TMs intact and clear, ear canals clear, no drainage, grossly hearing normal. Nose: Nares patent, no discharge, no inflammation, no sinus tenderness. Mouth: Oropharynx without lesions or masses, good dentition, MMM. Neck: Supple, trachea midline, no enlargement of anterior or posterior cervical nodes, no thyroid masses or goiter palpable. Cardio: Regular rate and rhythm, s1 and s2 normal, no murmur appreciated. Resp: Clear to auscultation bilaterally anteriorly and posteriorly, no rhonchi, rales, wheezing or rubs Course Course Level of Care: Express Care Visit Vital Signs Vital signs: Vital Signs Temperature 36.8 C 02/16/25 14:08 Pulse Rate 82 02/16/25 14:08 Respiratory Rate 16 02/16/25 14:08 Blood Pressure 132/105 H 02/16/25 14:08 Pulse Oximetry 100 02/16/25 14:08 Oxygen Delivery Room Air 02/16/25 14:08 Temperature 36.8 C 02/16/25 14:08 Pulse Rate 82 02/16/25 14:08 Respiratory Rate 16 02/16/25 14:08 Blood Pressure 132/105 H 02/16/25 14:08 Pulse Oximetry 100 02/16/25 14:08 Oxygen Delivery Room Air 02/16/25 14:08 MDM MDM Narrative Medical decision making narrative: At the time of visit patient is resting comfortably on the exam table. Patient appears to be nontoxic. C/o bilateral eye irritation. She reports she has had redness and swelling to the left upper and lower eyelid for 3 weeks and redness and swelling to the right upper eyelid x1 week. Has been trying some jqzh-xzf-tnjfacl stye relief drops without relief. Areas are painful to touch. Has been using warm compresses. Denies any visual changes or eye injury. On exam patient has internal stye to the left upper lateral and left lower lateral as well as to the right upper medial eyelid, tenderness to palpation with localized swelling and redness. Plan: I suspect patient has stye to bilateral eyelids. Prescription for polymyxin eyedrops was sent to the pharmacy. Follow-up with eye doctor in 5-7 days if symptoms persist. Supportive measures were discussed with the patient and they voiced understanding discharge instructions and agrees to treatment plan. Return precautions reviewed Differential Diagnosis Differential Diagnosis: Differential diagnostic considerations for eye problems include corneal abrasion, conjunctivitis, acute iritis, hyphemia, periorbital cellulitis, subconjunctival hemorrhage, glaucoma, corneal ulcer, ruptured globe, foreign body in eye. Discharge Plan Discharge Clinical Impression: Hordeolum eyelid, internal Qualifiers: Laterality: unspecified laterality Qualified Code(s): H00.029 - Hordeolum internum unspecified eye, unspecified eyelid Patient Disposition: Home Condition: Stable Instructions: Antibiotic Billie Acuña (ED) Additional Instructions: Practice good hand washing techniques Avoid touching eyes Instill eyedrops as prescribed May use warm moist washcloth to help remove eye discharge If eyes are matted shut-do not pry eyes open-use a warm moist cloth to loosen matting and wipe matter away from eye May take Tylenol/Motrin as needed for pain or fever May take Benadryl as needed for itching Follow-up with your PCP in 3-5 days if symptoms persist or sooner if they worsen Go to the emergency room if you develop any fever that is not controlled by Tylenol or Motrin, loss of vision, eye pain, increase eye swelling,visual changes, headache, confusion, lethargy, weakness, chest pain, or shortness of breath. Follow-up with an eye doctor if symptoms persist for 5-7 days Patient Language: Maori Prescriptions: New polymyxin B sulf-trimethoprim 10,000 unit- 1 mg/mL drops 1 drp EACH EYE Q3H 10 Days Qty: 10 0RF Rx Instructions: while awake; do not exceed 6 doses in 24 hours No Action melatonin 10 mg tablet 20 mg PO QHS Hair, Skin and Nails (biotin) 10,000 mcg tablet,chewable PO Trintellix 10 mg tablet 10 mg PO QAM Patient Comments: QAM metoprolol tartrate 50 mg tablet 50 mg PO BID Qty: 180 1RF hydroxyzine pamoate [Vistaril] 25 mg capsule 25 mg PO BID PRN (Reason: anxiety) Qty: 180 1RF omeprazole 40 mg capsule,delayed release(DR/EC) 40 mg PO QAM Qty: 90 1RF triamterene-hydrochlorothiazid 37.5-25 mg tablet 1 tablet PO DAILY Qty: 90 1RF Follow-up/Referrals: UNKNOWN,DOCTOR [Primary Care Provider] Time of Disposition: 14:13 Quality NIHSS Nursing Documentation ED NIHSS nursing documentation: reviewed/agree
[2025-02-16 14:08] VITALS: BP 132/105; PULSE 82; RESP 16; TEMP 36.8; O2SAT 100
== END 2025-02-16 14:20 | disposition home or self-care (01) ==
PROVIDERS: Emergency Provider Nurse Practitioner Family
DX: H00.025 Hordeolum internum left lower eyelid (principal); H00.024 Hordeolum internum left upper eyelid; H00.021 Hordeolum internum right upper eyelid; F17.210 Nicotine dependence, cigarettes, uncomplicated; I10 Essential (primary) hypertension; K21.9 Gastro-esophageal reflux disease without esophagitis; F41.9 Anxiety disorder, unspecified; F32.A Depression, unspecified
CPT/HCPCS: 99213; G0463